=== PATIENT | male | born 1950 | race Caucasian/White ===

== ENCOUNTER 2016-08-25 07:05 | Day surgery (SDC) | payer MEDICARE, OTHER ==
[2016-08-25] VITALS (27 sets, daily range): BP systolic 102–141; BP diastolic 55–84; PULSE 50–70; RESP 10–22; TEMP 95.8–98; O2SAT 93–99; Ht 185.4 cm; Wt 105.1 kg
[~2016-08-25] VITALS: Ht 185.4 cm; Wt 105.1 kg
[~2016-08-25 07:05] MED LIST: ATOR10TA64 PO; HYDR25TA PO; LIDOCAINE 1% (10mg/ml) 2ml SDV INJ ONE; LOSA50TA52 PO; LR 1,000 ML IV SCH; SAW450CA4 PO; SILD20TA10 PO; TAMS-1 PO
--- OUTSIDE RECORDS SUMMARY | 2016-08-25 07:09 | XMS REPORT | Summary of Care ---
Author Author Ervin Castro M.D. Unknown Address [address] [place], [place] [id number] Phone Unavailable Care Team Providers Care Slip Cover Operator Name Role Phone Matthew Gonzalez, Jermain Unavailable Jonathan Lyons M.D. 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, N52.9) Status: Active UTI (urinary tract infection) (599.0, N39.0) Status: Active Incomplete bladder emptying (788.21, R33.9) Status: Active BPH with obstruction/lower urinary tract symptoms (600.01, N40.1) Status: Active Medications Name Dates Details Losartan Potassium 50 MG Oral Tablet Take one tablet by mouth daily Quantity: 90 Crater M.D., Ervin Aly * Start 28-May-2016 Active HydroCHLOROthiazide 25 MG Oral Tablet TAKE ONE TABLET BY MOUTH EVERY DAY DIRECTED * Quantity: 90 Refills: 3 Crater M.D., Ervin Aly * Start 16-Aug-2012 Active Atorvastatin Calcium 10 MG Oral Tablet take one tablet by mouth every day * Quantity: 90 Refills: 2 Crater M.D., Ervin Aly * Start 03-Aug-2013 Active Sildenafil Citrate 20 MG Oral Tablet TAKE 5 TABLETS BY MOUTH DAILY NEEDED * Quantity: 90 Refills: 0 Matthew M.D.Ervin * Start Active Saw [place] Oral Capsule * Refills: 0 * Start 25-Jun-2016 Active Tamsulosin HCl - 0.4 MG Oral Capsule TAKE 1 CAPSULE BY MOUTH AT BEDTIME * Quantity: 30 Refills: 0 Jonathan Fan M.D. * Start 25-Jun-2016 Active Allergies and Adverse Reactions Name Dates Details No Known Drug Allergies (Allergy) Status: Active Past Medical History Name Dates Details History of Dysuria (788.1, R30.0) Status: Resolved History of Elevated prostate specific antigen (PSA) (790.93, R97.20) Status: Resolved History of hepatitis (V12.09, Z86.19) Status: Resolved History of Hyperlipoproteinemia (272.4, E78.5) Status: Resolved History of Nephrolithiasis (V13.01) Status: Resolved Procedures Procedure Dates Details History of Knee Surgery History of Surgery Vas Deferens Vasectomy History of Complete Colonoscopy History of Complete Colonoscopy Completed: 11-Dec-2011 CBC w/ Auto Diff 7150 Ordered: 22-Jul-2016 Comprehensive Metabolic Panel 1212 Ordered: 22-Jul-2016 Immunization Name Dates Details Tdap (Adacel) Lot #: [id number] on: 05-Jan-2014 Pneumo (Pneumovax) Lot #: [id number] on: 22-May-2016 Family History Name Dates Details Family history of Cancer Comments: Family History Status: Active Family history of Nephrolithiasis Comments: Family History Status: Active Family history of Diabetes Mellitus (V18.0) Comments: Family History Status: Active Family history of Hypertension (V17.49) Comments: Family History Status: Active Family history of Acute Myocardial Infarction (V17.3) Comments: Family History Status: Active Family history of Colon Cancer (V16.0) Comments: Family History Status: Active Name Dates Details Family history of Acute Myocardial Infarction (V17.3) Status: Active Name Dates Details Family history of Acute Myocardial Infarction (V17.3) Status: Active Social History Name Dates Details - Status: Name Dates Details Smoker. current status unknown Former smoker Former smoker Vital Signs Date Test Result Details 22-Jul-2016 13:04 BP Systolic 130 mm[Hg] Status: Comments: Location: ; Position: BP Diastolic 70 mm[Hg] Status: Comments: Location: ; Position: Heart Rate 65 /min Status: Comments: Location: ; Weight 241 lb Status: Physical Findings 100 Status: Comments: O2 Saturation Body Mass Index Calculated 31.8 kg/m2 Status: Body Surface Area Calculated 2.33 m2 Status: 25-Jun-2016 15:12 BP Systolic 136 mm[Hg] Status: Comments: Location: ; Position: BP Diastolic 84 mm[Hg] Status: Comments: Location: ; Position: Heart Rate 66 /min Status: Comments: Location: ; Results Date Description Value Details 29-Jun-2016 09:38 URINE CULTURE [id number] Comments: Dave performed at: [facility] [employer] [facility], [address] [place] [address], [phone], Centrifugal Station Operator: Jonathan Camacho D.O., MPHQuest Collection Date/Time: [id number] Results Received Date/Time: [id number] Reported Date/Time: [id number] performed at: [facility], [address] [place] [address], [phone], Centrifugal Station Operator: Jonathan Camacho D.O., MPH[employer] Collection Date/Time: [id number] Results Received Date/Time: [id number] Reported Date/Time: [id number] CULTURE, URINE, ROUTINE SEE NOTE (Abnormal) Comments: CULTURE, URINE, ROUTINE MICRO NUMBER: [id number] TEST STATUS: FINAL SPECIMEN SOURCE : CLEAN CATCH SPECIMEN QUALITY: ADEQUATE RESULT: Greater than 100,000 CFU/mL of Aerococcus urinae Susceptibility testing not routinely performed on this isolate.[LA]----- Plan of Care Name Dates Details Planned Observations Planned Goals not documented Planned Encounters Appointment; Provider: Ervin Castro M.D. On 22-Jan-2017 13:30 Instructions Name Dates Details Instructions not documented Encounters Appointment; Ervin Castro M.D. Encounter Diagnosis: Problem not documented On 22-May-2016 13:15 Appointment; Honey Moon P.A. Encounter Diagnosis: Problem not documented On 21-Feb-2016 10:20 Appointment; Ervin Castro M.D. Encounter Diagnosis: Problem not documented On 13:00 Appointment; Ervin Castro M.D. Encounter Diagnosis: Problem not documented On 26-Aug-2015 10:15 Appointment; Bull Lawrence PShravan Encounter Diagnosis: Problem not documented On 21-Aug-2015 09:00 Appointment; Eric Perez M.D. Encounter Diagnosis: Problem not documented On 27-Jun-2015 08:50 Appointment; Ervin Castro M.D. Encounter Diagnosis: Problem not documented On 17-May-2015 13:30 Appointment; Ervin Castro M.D. Encounter Diagnosis: Problem not documented On 13:30 Appointment; Bull Lawrence P.T. Encounter Diagnosis: Problem not documented On 07-Aug-2014 10:00 Appointment; Ervin Castro M.D. Encounter Diagnosis: Problem not documented On 03-Aug-2014 13:45
--- OUTSIDE RECORDS SUMMARY | 2016-08-25 07:10 | XMS REPORT | Summary of Care ---
Author Author Ervin Castro M.D. Organization Unknown Address [address] [place], [place] [id number] Phone Unavailable Care Team Providers Care C4 Planner Name Role Phone Matthew Gonzalez, Jermain Unavailable Unavailable Ervin Castro PP Unavailable Unavailable Unavailable Functional Status Functional Status Health Issues* Name Dates Details Functional status health issues are not documented Status: Cognitive Status Health Issues* Name Dates Details Cognitive status health issues are not documented Status: Problems Name Dates Details Dysuria (788.1, R30.0) Status: Active Angina pectoris (413.9, I20.9) Status: Active Atypical chest pain (786.59, R07.89) Status: Active Elevated prostate specific antigen (PSA) (790.93, R97.2) Status: Active Hematuria (599.70, R31.9) Status: Active Hyperlipidemia (272.4, E78.5) Status: Active Acute upper respiratory infection (465.9, J06.9) Status: Active Hypertension (401.9, I10) Status: Active Medications Name Dates Details Losartan Potassium 100 MG Oral Tablet take one tablet by mouth every day Quantity: 90 Ervin Castro M.D.* Started 22-May-2011 ActiveHydrochlorothiazide 25 MG Oral Tablet TAKE ONE TABLET BY MOUTH EVERY DAY DIRECTED * Quantity: 30 Refills: 4 Ervin Castro M.D.* Started 16-Aug-2012 ActiveAtorvastatin Calcium 10 MG Oral Tablet take one tablet by mouth every day * Quantity: 90 Refills: 2 Ervin Castro M.D.* Started 03-Aug-2013 ActiveProventil HFA 108 (90 Base) MCG/ACT Inhalation Aerosol Solution INHALE 1 TO 2 PUFFS EVERY 6 HOURS NEEDED. * Quantity: 1 Refills: 1 Ervin Castro M.D.* Started 21-May-2014 Active6.7 GM Inhaler Allergies and Adverse Reactions Name Dates Details No Known Drug Allergies Status: Active Past Medical History Name Dates Details History of hepatitis (V12.09, Z86.19) Status: Resolved History of Hyperlipoproteinemia (272.4, E78.5) Status: Resolved History of Nephrolithiasis (V13.01) Status: Resolved Procedures Procedure Dates Details History of Knee Surgery History of Surgery Vas Deferens Vasectomy History of Complete Colonoscopy History of Complete Colonoscopy Completed:11-Dec-2011 THYROID STIM. HORMONE 3602 Ordered:06-Jul-2014 Testosterone,Free and Total [id number] Ordered:06-Jul-2014 Immunization Name Dates Details Tdap (Adacel) Lot #: [id number] Administered on:05-Jan-2014 Family History Unknown Family Member* Name Dates Details Family history of Cancer [...] Cancer (V16.0) Comments: Family History Status: Active Grandfather* Name Dates Details Family history of Acute Myocardial Infarction (V17.3) Status: Active Father* Name Dates Details Family history of Acute Myocardial Infarction (V17.3) Status: Active Social History Name Dates Details Smoking Status* Smoker. current status unknown * Former smoker Vital Signs Date Test Result Details 06-Jul-2014 10:23 BP Systolic 120 mm[Hg] Status: BP Diastolic 78 mm[Hg] Status: Heart Rate 75 /min Status: Weight 241.25 lb Status: O2 SAT 98 % Status: Body Mass Index Calculated 31.83 kg/m2 Status: Body Surface Area Calculated 2.33 m2 Status: Results Date Description Value Details 03-Jul-2014 09:31 CBC w/ Auto Diff 7150 Comments: Fastin hours WBC 7.6 K/uL (Better) Range: 4.5-11.0 RBC 5.19 mil/uL (Better) Range: 4.20-5.40 HGB 15.4 g/dL (Better) Range: 14.0-18.0 HCT 45.1 % (Better) Range: 42.0-53.0 MCV 86.9 fL (Better) Range: 80.0-99.0 MCH 29.6 pg (Better) Range: 27.3-32.5 MCHC 34.1 % (Better) Range: 32.0-36.0 RDW 13.7 % (Better) Range: 11.6-14.8 PLATELETS 221 K/uL (Better) Range: 150-400 MPV 8.5 fL (Better) Range: 6.0-11.0 %NEUTRO 71.1 % (Better) Range: 37.0-80.0 %LYMPHS 18.0 % (Better) Range: 13.0-50.0 %MONO 6.8 % (Better) Range: 0.0-12.0 %EOS 2.3 % (Better) Range: 0.0-7.0 %BASO 0.5 % (Better) Range: 0.0-2.5 %JAMIL 1.2 % (Better) Range: 0.0-5.0 NEUTRO 5.4 K/uL (Better) Range: 2.0-6.9 LYMPHS 1.4 K/uL (Better) Range: 0.6-3.4 MONOS 0.5 K/uL (Better) Range: 0.0-0.9 EOS 0.2 K/uL (Better) Range: 0.0-0.7 BASO 0.0 K/uL (Better) Range: 0.0-0.2 10:00 Comprehensive Metabolic Panel 1212 Comments: Fastin hours SODIUM 139 mmol/L (Better) Range: 133-144 POTASSIUM 3.7 mmol/L (Better) Range: 3.5-5.1 CHLORIDE 103 mmol/L (Better) Range: 98-110 CARBON DIOXIDE 27.5 mmol/L (Better) Range: 23.0-33.0 ANION GAP 9 mmol/L (Better) Range: 6-16 BUN 20 mg/dL (Above high threshold) Range: 7-18 CREATININE, SERUM 1.16 mg/dL (Above high threshold) Range: 0.43-1.13 BUN:CREATININE RATIO 17 (Better) EST GFR, >60 ml/min (Better) Range: >60 EST GFR, NON-AFR TUVALUAN >60 ml/min (Better) Range: >60 Comments: EST GFR is reported in ml/min per 1.73 m2 of body surface area. For -Mauritanian, please multiple result by 1.2.----- GLUCOSE 109 mg/dL (Above high threshold) Range: 70-100 ALK PHOSPHATASE 65 U/L (Better) Range: 46-116 Comments: Please Note: New Reference Range effective 2013.----- TOTAL BILIRUBIN 0.50 mg/dL (Better) Range: 0.20-1.00 AST 27 U/L (Better) Range: 8-35 ALT 46 U/L (Better) Range: 12-78 ALBUMIN 4.0 g/dL (Better) Range: 3.4-5.0 TOTAL PROTEIN 7.4 g/dL (Better) Range: 6.4-8.2 A/G RATIO 1.2 units (Better) Range: 1.0-1.8 CALCIUM 8.7 mg/dL (Better) Range: 8.5-10.1 10:00 LIPID PROFILE 1184 Comments: Fastin hours CHOLESTEROL 161 mg/dL (Better) Range: <200 TRIGLYCERIDES 117 mg/dL (Better) Range: 30-200 HDL Cholesterol 41 mg/dL (Better) Range: >39 NON HDL CHOLESTEROL 120 (Better) CARDIAC RSK FACTOR 3.9 units (Below low threshold) Range: 4.4-5.0 LDL - CALCULATED 97 mg/dL (Better) Range: 0-130 10:06 PSA ( PROSTATE SPECIFIC ANTIGEN) 3100 Comments: Fastin hours PROSTATE SPECIFIC ANTIGEN 1.020 ng/mL (Better) Range: 0.000-4.000 Plan of Care Planned Observations* Name Dates Details Planned Goals not documented Goal Planned Encounters* Appointment; Provider: Ervin Castro On 03-Aug-2014 13:45 * Appointment; Provider: Jj Shaw On 11-Dec-2011 08:00 Instructions * Instructions not documented Encounters Appointment; Ervin Castro Encounter Diagnosis: Problem not documented On 06-Jul-2014 10:30 Appointment; Ervin Castro Encounter Diagnosis: Problem not documented On 21-May-2014 13:00 Appointment; Ervin Castro Encounter Diagnosis: Problem not documented On 05-Jan-2014 10:15 Appointment; Bull Lawrence Encounter Diagnosis: Problem not documented On 11:00 Appointment; Ervin Castro Encounter Diagnosis: Problem not documented On 20-Jun-2013 15:15 Appointment; Ervin Castro Encounter Diagnosis: Problem not documented On 07-Dec-2012 16:00 Appointment; Yenni Guerrero Encounter Diagnosis: Problem not documented On 02-Sep-2012 16:00 Appointment; Ervin Castro Encounter Diagnosis: Problem not documented On 23-Aug-2012 11:00 Appointment; Yenni Guerrero Encounter Diagnosis: Problem not documented On 18-Aug-2012 15:00 Appointment; Ervin Castro Encounter Diagnosis: Problem not documented On 16-Aug-2012 09:00
--- OUTSIDE RECORDS SUMMARY | 2016-08-25 07:10 | XMS REPORT | Summary of Care ---
Author Author Ervin Castro M.D. Unknown Address [address] [place], [place] [id number] Phone Unavailable Care Team Providers Care Movie Extra Name Role Phone Matthew Gonzalez, Jermain Unavailable [...] 0 Matthew M.D.Ervin * Start Active Saw [place] Oral Capsule * Refills: 0 * Start [...] Name Dates Details Tdap (Adacel) Lot #: [id number] on: 05-Jan-2014 Pneumo (Pneumovax) Lot #: [id number] on: 22-May-2016 Family History Name Dates Details [...] Rate 66 /min Status: Comments: Location: ; 23-Jun-2016 13:42 BP Systolic 136 mm[Hg] Status: Comments: Location: ; Position: BP Diastolic 78 mm[Hg] Status: Comments: Location: ; Position: Heart Rate 67 /min Status: Comments: Location: ; Weight 234.6 lb Status: Physical Findings 96 Status: Comments: O2 Saturation Body Mass Index Calculated 30.95 kg/m2 Status: Body Surface Area Calculated 2.3 m2 Status: Results Date Description Value Details 29-Jun-2016 09:38 URINE CULTURE [id number] Comments: SmartThings performed at: [facility] [employer], [address] [place] [address], [phone], Supervisor Prep: Jonathan Camacho D.O., MPHQuest Collection Date/Time: [id number] Results Received Date/Time: [id number] Reported Date/Time: [id number] performed at: [facility] [employer], [address] [place] [address], [phone], Supervisor Prep: Jonathan Camacho D.O., MPHQuest Collection Date/Time: [id number] Results Received Date/Time: [id number] Reported Date/Time: CULTURE, URINE, ROUTINE SEE NOTE (Abnormal) Comments: CULTURE, URINE, ROUTINE MICRO NUMBER: [id number] TEST STATUS: FINAL SPECIMEN SOURCE : CLEAN CATCH SPECIMEN QUALITY: ADEQUATE RESULT: Greater than 100,000 CFU/mL of Aerococcus urinae Susceptibility testing not routinely performed on this isolate.[KS]----- Plan of Care Name Dates Details Planned Observations CBC w/ Auto Diff 7150 On 22-Jan-2017 Intent Comprehensive Metabolic Panel 1212 On 22-Jan-2017 Intent Planned Goals not documented Planned Encounters Appointment; Provider: Ervin Castro M.D. On 22-Jan-2017 13:30 Appointment; Provider: Jonathan Fan M.D. On 23-Jul-2016 16:15 Instructions Name Dates Details Instructions not documented Encounters Appointment; Jonathan Fan M.D. Encounter Diagnosis: Problem not documented On 13-Jul-2016 16:00 Appointment; Jonathan Fan M.D. Encounter Diagnosis: Problem not documented On 25-Jun-2016 15:15 Appointment; Ervin Castro M.D. Encounter Diagnosis: Problem not documented On 23-Jun-2016 13:45 Appointment; Ervin Castro M.D. Encounter Diagnosis: Problem not documented On 22-May-2016 13:15 Appointment; Honey Moon P.A. Encounter Diagnosis: Problem not documented On 21-Feb-2016 10:20 Appointment; Ervin Castro M.D. Encounter Diagnosis: Problem not documented On 13:00 Appointment; Ervin Castro M.D. Encounter Diagnosis: Problem not documented On 26-Aug-2015 10:15 Appointment; Bull Lawrence P.T. Encounter Diagnosis: Problem not documented On 21-Aug-2015 [...]
--- OUTSIDE RECORDS SUMMARY | 2016-08-25 07:10 | XMS REPORT | Summary of Care ---
Author Author Ervin Castro M.D. Unknown Address [address], [place] [id number] Phone Unavailable Care Team Providers Care Ticket Seller Name Role Phone Matthew Gonzalez, A Unavailable Unavailable Honey Willis Unavailable Unavailable Ervin Castro Unavailable Unavailable Unavailable Functional Status Name Dates Details Functional status health issues are not documented Status: Name Dates Details Cognitive status health issues are not documented Status: Problems Name Dates Details Angina pectoris (413.9, I20.9) Status: Active Hematuria (599.70, R31.9) Status: Active Elevated prostate specific antigen (PSA) (790.93, R97.20) Status: Active Hyperlipidemia (272.4, E78.5) Status: Active Hypertension (401.9, I10) Status: Active Atypical chest pain (786.59, R07.89) Status: Active 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, N52.9) Status: Active Dysuria (788.1, R30.0) Status: Active Medications Name Dates Details Losartan Potassium 50 MG Oral Tablet Take one tablet by mouth daily Quantity: 90 Matthew Silverman.Julito.Ervin * Start 28-May-2016 Active HydroCHLOROthiazide 25 MG Oral Tablet TAKE ONE TABLET BY MOUTH EVERY DAY DIRECTED * Quantity: 90 Refills: 3 Matthew Silverman.Julito., Ervin Aly * Start 16-Aug-2012 Active Atorvastatin Calcium 10 MG Oral Tablet take one tablet by mouth every day * Quantity: 90 Refills: 2 Matthew M.D., Ervin Aly * Start 03-Aug-2013 Active Sulfamethoxazole-Trimethoprim 800-160 MG Oral Tablet TAKE 1 TABLET PO EVERY 12 HOURS X 10 DAYS * Quantity: 20 Refills: 0 Red Meredith.Honey Monzon * Start 21-Feb-2016 Active LevoFLOXacin 250 MG Oral Tablet 1 daily x 10 days * Quantity: 10 Refills: 0 Ervin Castro M.D. Start 17-Mar-2016 Active Sildenafil Citrate 20 MG Oral Tablet TAKE 5 TABLETS BY MOUTH DAILY NEEDED * Quantity: 90 Refills: 0 Matthew Silverman.Ollie, Ervin A * Start Active Allergies and Adverse Reactions Name Dates [...] Colonoscopy History of Complete Colonoscopy Completed: 11-Dec-2011 Urinalysis, Reflex to Microscopic or Culture PRN [id number] Ordered: 22-May-2016 Immunization Name Dates Details Tdap (Adacel) Lot #: [id number] on: 05-Jan-2014 Pneumo (Pneumovax) Lot #: [id number] on: 22-May-2016 Family History Name Dates Details [...] smoker Vital Signs Date Test Result Details 22-May-2016 13:04 BP Systolic 134 mm[Hg] Status: Comments: Location: ; Position: BP Diastolic 88 mm[Hg] Status: Comments: Location: ; Position: Heart Rate 102 /min Status: Comments: Location: ; Weight 238 lb Status: Physical Findings 98 Status: Comments: O2 Saturation Body Mass Index Calculated 31.4 kg/m2 Status: Body Surface Area Calculated 2.32 m2 Status: Results Date Description Value Details 22-May-2016 13:23 BASIC METABOLIC PROFILE 1210 SODIUM 135 mmol/L Range: 133-144 POTASSIUM 3.5 mmol/L Range: 3.5-5.1 CHLORIDE 98 mmol/L Range: 98-110 CARBON DIOXIDE 29.5 mmol/L Range: 23.0-33.0 ANION GAP 8 mmol/L Range: 6-16 BUN 15 mg/dL Range: 7-18 CREATININE, SERUM 1.23 mg/dL Range: 0.70-1.30 EST GFR, >60 ml/min Range: >60 EST GFR, NON-AFR ANGOLAN 59 ml/min (Below low threshold) Range: >60 Comments: EST GFR is reported in ml/min per 1.73 m2 of body surface area. ----- BUN:CREATININE RATIO 12 GLUCOSE 176 mg/dL (Above high threshold) Range: 70-100 CALCIUM 9.6 mg/dL Range: 8.5-10.1 Plan of Care Name Dates Details Planned Observations Urinalysis, Reflex to Microscopic or Culture PRN [id number] On 25-May-2016 Intent Planned Goals not documented Planned Encounters Appointment; Provider: Ervin Castro M.D. On 23-Jun-2016 13:45 Interventions Provided Medication Changes* LevoFLOXacin 250 MG Oral Tablet - Renew Instructions Name Dates Details Instructions not documented Encounters Appointment; Honey Moon P.A. Encounter Diagnosis: Problem [...] not documented On 07-Aug-2014 10:00 Appointment; Ervin Csatro M.D. Encounter Diagnosis: Problem not documented On 03-Aug-2014 13:45 Appointment; Ervin Castro M.D. Encounter Diagnosis: Problem not documented On 06-Jul-2014 10:30
--- OUTSIDE RECORDS SUMMARY | 2016-08-25 07:10 | XMS REPORT | Summary of Care ---
Author Author Jonathan Fan M.D. Organization Unknown Address [address] [place] [address] [place] [address] Phone Unavailable Care Team Providers Care Air Conditioning Installer Supervisor Name Role Phone Jermain Castro M.D. Unavailable Jonathan Fan M.D. Unavailable Unavailable Ervin Castro Unavailable Unavailable [...] Status: Active Dysuria (788.1, R30.0) Status: Active UTI (urinary tract infection) (599.0, N39.0) Status: Active Incomplete bladder emptying (788.21, R33.9) Status: Active BPH with obstruction/lower urinary tract symptoms (600.01, N40.1) Status: Active Medications Name Dates Details Losartan Potassium 50 MG Oral Tablet Take one tablet by mouth daily Quantity: 90 Crater M.D., Ervin A * Start 28-May-2016 Active HydroCHLOROthiazide 25 MG Oral Tablet TAKE ONE TABLET BY MOUTH EVERY DAY DIRECTED * Quantity: 90 Refills: 3 Crater M.D., Ervin Aly * Start 16-Aug-2012 Active Atorvastatin Calcium 10 MG Oral Tablet take one tablet by mouth every day * Quantity: 90 Refills: 2 Crater M.D., Ervin A * Start 03-Aug-2013 Active Sildenafil Citrate 20 MG Oral Tablet TAKE 5 TABLETS BY MOUTH DAILY NEEDED * Quantity: 90 Refills: 0 Crater M.D., Ervin Aly * Start Active Saw [place] Oral Capsule * Refills: 0 * Start 25-Jun-2016 Active Amoxicillin-Pot Clavulanate 875-125 MG Oral Tablet TAKE 1 TABLET EVERY 12 HOURS WITH MEALS X 21 days * Quantity: 42 Refills: 0 Cho M.D. Jonathan * Start 25-Jun-2016 End 16-Jul-2016 Active Tamsulosin HCl - 0.4 MG Oral Capsule TAKE 1 CAPSULE BY MOUTH AT BEDTIME * Quantity: 30 Refills: 0 Cho M.D. Jonathan * Start 25-Jun-2016 Active Allergies and Adverse [...] Colonoscopy History of Complete Colonoscopy Completed: 11-Dec-2011 Procedures not documented Immunization Name Dates Details Tdap (Adacel) Lot #: [id number] on: 05-Jan-2014 Pneumo (Pneumovax) Lot #: [id number] on: 22-May-2016 Family History Name Dates Details [...] smoker Vital Signs Date Test Result Details 25-Jun-2016 15:12 BP Systolic 136 mm[Hg] Status: [...] m2 Status: Results Date Description Value Details 06-Jun-2016 10:51 Urinalysis, Reflex to Microscopic or Culture PRN [id number] Comments: 10 day f/u after completion of Levaquin 250 mg qd x 10 days started on 05/22/16 pH 7.0 Range: 5.0-7.5 SP GRAVITY 1.015 Range: 1.010-1.030 APPEARANCE CLOUDY (Abnormal) Range: Clear COLOR YELLOW Range: Straw-Yellow PROTEIN NEGATIVE mg/dL Range: Negative-Trace GLUCOSE NEGATIVE mg/dL Range: Negative KETONE NEGATIVE mg/dL Range: Negative BILIRUB NEGATIVE Range: Negative BLOOD NEGATIVE Range: Negative UROBIL 0.2 EU/dL Range: 0.2-1.0 NITRITE NEGATIVE Range: Negative LEUK SMALL (Abnormal) Range: Negative 10:51 Urine Microscopic UMIC WBC 6-10 /HPF (Abnormal) Range: 0-5 Comments: Specimen referred to Reference Lab for Culture----- BACTERIA 3+ /HPF (Abnormal) Range: Negative-Trace Comments: Specimen referred to Reference Lab for Culture----- EPITH 0-2 /HPF Range: 0-10 08-Jun-2016 08:21 URINE CULTURE [id number] Comments: appweevr performed at: [facility], [address] [place] [address], [phone], Heater Operator Helper: Jonathan Camacho D.O., MPHQuest Collection Date/Time: [id number] Results Received Date/Time: [id number] Reported Date/Time: [id number] performed at: [facility], [place], [address], Heater Operator Helper: Jonathan Camacho D.O., M[facility] Collection Date/Time: [id number] Results Received Date/Time: [id number] Reported Date/Time: CULTURE, URINE, ROUTINE SEE NOTE (Abnormal) Comments: CULTURE, URINE, ROUTINE MICRO NUMBER: [id number] TEST STATUS: FINAL SPECIMEN SOURCE : URINE SPECIMEN QUALITY: ADEQUATE RESULT: 10,000-50,000 CFU/mL of Streptococcus viridans group May represent colonizers from external and internal genitalia. No further testing ( including susceptibility) will be performed.[KS]----- 29-Jun-2016 09:38 URINE CULTURE [id number] Comments: appweevr performed at: [facility], [address] [place] [address], [phone], Heater Operator Helper: Jonathan Camacho D.O., M[facility] Collection Date/Time: [id number] Results Received Date/Time: [id number] Reported Date/Time: [id number] performed at: [facility], [address] [place] [address], [phone], Heater Operator Helper: Jonathan Camacho D.O., M[facility] Collection Date/Time: [id number] Results Received Date/Time: [id number] Reported Date/Time: [id number] CULTURE, URINE, ROUTINE SEE NOTE (Abnormal) Comments: CULTURE, URINE, ROUTINE MICRO NUMBER: [id number] TEST STATUS: FINAL SPECIMEN SOURCE : CLEAN CATCH SPECIMEN QUALITY: ADEQUATE RESULT: Greater than 100,000 CFU/mL of Aerococcus urinae Susceptibility testing not routinely performed on this isolate.[KS]----- Plan of Care Name Dates Details Planned Observations Planned Goals not documented Planned Encounters Appointment; Provider: Ervin Castro M.D. On 22-Jul-2016 13:15 Appointment; Provider: Jonathan Fan M.D. On 13-Jul-2016 16:00 Instructions Name Dates Details Instructions not documented Encounters Appointment; Jonathan Fan M.D. Encounter Diagnosis: Problem not documented On 25-Jun-2016 15:15 Appointment; Ervin Castro M.D. Encounter Diagnosis: Problem not documented On 23-Jun-2016 13:45 Appointment; Ervin Castro M.D. Encounter Diagnosis: Problem not documented On 22-May-2016 13:15 Appointment; Honey Moon P.A. Encounter Diagnosis: Problem not documented On 21-Feb-2016 10:20 Appointment; Erivn Castro M.D. Encounter Diagnosis: Problem not documented [...]
--- OUTSIDE RECORDS SUMMARY | 2016-08-25 07:10 | XMS REPORT | Summary of Care ---
Author Author Ervin Castro M.D. Organization Unknown Address [address] [place], [place] [id number] Phone Unavailable Care Team Providers Care Health Occupations Instructor Name Role Phone Matthew Gonzalez, Jermain Unavailable [...] Status: Active Hypertension (401.9, I10) Status: Active Acute upper respiratory infection (465.9, J06.9) Status: Active Medications Name Dates Details Losartan Potassium 100 MG Oral Tablet take one tablet by mouth every day Quantity: 90 Ervin Castro M.D.* Started 22-May-2011 ActiveHydrochlorothiazide 25 MG Oral Tablet TAKE ONE TABLET BY MOUTH EVERY DAY DIRECTED * Quantity: 30 Refills: 5 Ervin Castro M.D.* Started 16-Aug-2012 ActiveAtorvastatin Calcium 10 MG Oral Tablet take one tablet by mouth every day * Quantity: 90 Refills: 2 Ervin Castro M.D.* Started 03-Aug-2013 ActiveAzithromycin 250 MG Oral Tablet TAKE 2 TABLETS ON DAY 1 THEN TAKE 1 TABLET A DAY FOR 4 DAYS. * Quantity: 1 Refills: 0 Ervin Castro M.D.* Started 21-May-2014 Active6 Tablet Disp Pack MethylPREDNISolone (Jimmy) 4 MG Oral Tablet TAKE DIRECTED. * Quantity: 1 Refills: 0 Ervin Castro M.D.* Started 21-May-2014 Tousts94 Tablet Disp Pack Proventil HFA 108 (90 Base) MCG/ACT Inhalation Aerosol [...] Complete Colonoscopy History of Complete Colonoscopy Completed:11-Dec-2011 Procedures not documented Immunization Name Dates Details Tdap (Adacel) Lot #: [id number] Administered on:05-Jan-2014 Family History Unknown Family Member* [...] smoker Vital Signs Date Test Result Details 21-May-2014 13:17 BP Systolic 124 mm[Hg] Status: BP Diastolic 74 mm[Hg] Status: Heart Rate 74 /min Status: O2 SAT 97 % Status: Results Date Description Value Details Results not documented Plan of Care Planned Observations* Name Dates Details Planned Goals not documented Goal Planned Encounters* Appointment; Provider: Ervin Castro On 06-Jul-2014 10:30 * Appointment; Provider: Jj Shaw On 11-Dec-2011 [...] Diagnosis: Problem not documented On 16-Aug-2012 09:00 Appointment; Ervin Castro Encounter Diagnosis: Problem not documented On 15-Jun-2012 16:00
--- OUTSIDE RECORDS SUMMARY | 2016-08-25 07:10 | XMS REPORT | Summary of Care ---
Author Author Ervin Castro M.D. Organization Unknown Address [address] [place], [place] [id number] Phone Unavailable Care Team Providers Care Project Management Name Role Phone Matthew Gonzalez, Jermain Unavailable [...] Refills: 0 Ervin Castro M.D.* Started 21-May-2014 Aheoxf18 Tablet Disp Pack Proventil HFA 108 (90 [...] Name Dates Details Tdap (Adacel) Lot #: [id number] Administered on:05-Jan-2014 Family History Unknown Family Member* [...]
--- OUTSIDE RECORDS SUMMARY | 2016-08-25 07:10 | XMS REPORT | Summary of Care ---
Author Author Ervin Castro M.D. Organization Unknown Address [address] [place], [place] [phone] Phone Unavailable Care Team Providers Care Sign Installer Name Role Phone Matthew Gonzalez, Jermain Unavailable [...] Status: Active Hematuria (599.70, R31.9) Status: Active Acute upper respiratory infection (465.9, J06.9) Status: Active Hyperlipidemia (272.4, E78.5) Status: Active Hypertension (401.9, I10) Status: Active Medications Name Dates Details Losartan Potassium 50 MG Oral Tablet TAKE ONE TABLET BY MOUTH DAILY Quantity: 90 Ervin Castro M.D.* Started 22-May-2011 [...] Name Dates Details Tdap (Adacel) Lot #: [id number] Administered on:05-Jan-2014 Family History Unknown Family Member* [...] smoker Vital Signs Date Test Result Details 03-Aug-2014 13:43 BP Systolic 124 mm[Hg] Status: BP Diastolic 80 mm[Hg] Status: Heart Rate 61 /min Status: Weight 241.5 lb Status: O2 SAT 97 % Status: Body Mass Index Calculated 31.86 kg/m2 Status: Body Surface Area Calculated 2.33 m2 Status: 06-Jul-2014 10:23 BP Systolic 120 mm[Hg] Status: BP Diastolic 78 mm[Hg] Status: Heart Rate 75 /min Status: Weight 241.25 lb Status: O2 SAT 98 % Status: Body Mass Index Calculated 31.83 kg/m2 Status: Body Surface Area Calculated 2.33 m2 Status: Results Date Description Value Details 09-Jul-2014 09:50 THYROID STIM. HORMONE 3602 THYROID STIM. HORMONE 3.379 uIU/mL (Better) Range: 0.550-4.780 Comments: \[id number]\No established reference ranges for infants and children < 2 years of ageNo established reference ranges for infants and children <2 years of age----- 10-Jul-2014 12:21 Testosterone,Free and Total [id number] Comments: TESTING PERFORMED AT: [DA] [facility] [place], [address], [place], [address], PHONE: [phone], ROOF PROMENADE TILE SETTER: HARMONY SY MDTESTING PERFORMED AT: [BN] [facility] [place], [address], [place], [address], PHONE: [phone], ROOF PROMENADE TILE SETTER: JULIO C DOWNING MD TESTOSTERONE, SERUM 435 NG/DL (Better) Range: 348-1197 COMMENT: COMMENT (Better) Comments: ADULT MALE REFERENCE INTERVAL IS BASED ON A POPULATION OFLEAN MALES UP TO 40 YEARS OLD.----- FREE TESTOSTERONE(DIRECT) 3.7 PG/ML (Below low threshold) Range: 6.6-18.1 Plan of Care Planned Observations* Name Dates Details Planned Goals not documented Goal Planned Encounters* Appointment; Provider: Ervin Castro On 13:30 * Appointment; Provider: Bull Lawrence On 07-Aug-2014 10:00 * Appointment; Provider: Jj Shaw On 11-Dec-2011 08:00 Instructions * Instructions not documented Encounters Appointment; Ervin Castro Encounter Diagnosis: Problem not documented On 03-Aug-2014 13:45 Appointment; Ervin Castro Encounter Diagnosis: Problem not [...]
--- OUTSIDE RECORDS SUMMARY | 2016-08-25 07:10 | XMS REPORT | Summary of Care ---
Author Author Eric Perez M.D. Organization Unknown Address [address] [place], [place] [phone] Phone Unavailable Care Team Providers Care Tube Bender Hand Name Role Phone Chris Gonzalez, L Unavailable Unavailable Matthew Gonzalez, Jermain Unavailable Unavailable Ervin Castro [...] Atypical chest pain (786.59, R07.89) Status: Active Dysuria (788.1, R30.0) Status: Active Elevated prostate specific antigen (PSA) (790.93, R97.2) Status: Active UTI (lower urinary tract infection) (599.0, N39.0) Status: Active Medications Name Dates Details Losartan Potassium 50 MG Oral Tablet TAKE ONE TABLET BY MOUTH DAILY Quantity: 90 Ervin Castro M.D.* Started 22-May-2011 ActiveHydrochlorothiazide 25 MG Oral Tablet TAKE ONE TABLET BY MOUTH EVERY DAY DIRECTED * Quantity: 30 Refills: 2 Ervin Castro M.D.* Started 16-Aug-2012 ActiveAtorvastatin Calcium 10 MG Oral Tablet take one tablet by mouth every day * Quantity: 90 Refills: 3 Ervin Castro M.D.* Started 03-Aug-2013 ActiveCiprofloxacin HCl - 500 MG Oral Tablet TAKE 1 TABLET TWICE DAILY. * Quantity: 14 Refills: 0 Eric Perez M.D.* Started 27-Jun-2015 Active Allergies and Adverse Reactions Name Dates Details No Known Drug Allergies Status: Active Past Medical History Name Dates Details History of hepatitis (V12.09, Z86.19) Status: Resolved History of Hyperlipoproteinemia (272.4, E78.5) Status: Resolved History of Nephrolithiasis (V13.01) Status: Resolved Procedures Procedure Dates Details History of Knee Surgery History of Surgery Vas Deferens Vasectomy History of Complete Colonoscopy History of Complete Colonoscopy Completed:11-Dec-2011 Comprehensive Metabolic Panel 1212 Ordered:17-May-2015 Immunization Name Dates Details Tdap (Adacel) Lot #: [id number] Administered on:05-Jan-2014 Family History Unknown Family Member* [...] smoker Vital Signs Date Test Result Details 27-Jun-2015 08:56 BP Systolic 147 mm[Hg] Status: BP Diastolic 83 mm[Hg] Status: Heart Rate 76 /min Status: O2 SAT 98 % Status: Results Date Description Value Details 27-Jun-2015 09:14 Urinalysis, Reflex to Microscopic or Culture PRN [id number] pH 6.0 (Better) Range: 5.0-7.5 SP GRAVITY 1.020 (Better) Range: 1.010-1.030 APPEARANCE CLOUDY (Abnormal) Range: Clear COLOR YELLOW (Better) Range: Straw-Yellow PROTEIN 30 mg/dL (Abnormal) Range: Negative-Trace GLUCOSE NEGATIVE mg/dL (Better) Range: Negative KETONE NEGATIVE mg/dL (Better) Range: Negative BILIRUB NEGATIVE (Better) Range: Negative BLOOD NEGATIVE (Better) Range: Negative UROBIL 0.2 EU/dL (Better) Range: 0.2-1.0 NITRITE NEGATIVE (Better) Range: Negative LEUK MODERATE (Abnormal) Range: Negative 09:14 Urine Microscopic UMIC WBC 21-50 /HPF (Abnormal) Range: 0-5 Comments: Specimen referred to Microbiology for Culture----- RBC 3-5 /HPF (Abnormal) Range: 0-2 BACTERIA 3+ /HPF (Abnormal) Range: Negative-Trace Comments: Specimen referred to Microbiology for Culture----- EPITH 3-5 /HPF (Better) Range: 0-10 Plan of Care Planned Observations* Name Dates Details Planned Goals not documented Goal Planned Encounters* Appointment; Provider: Ervin Castro On 13:00 * Appointment; Provider: Jj Shaw On 11-Dec-2011 08:00 Instructions * Instructions not documented Encounters Appointment; Eric Perez Encounter Diagnosis: Problem not documented On 27-Jun-2015 08:50 Appointment; Ervin Castro Encounter Diagnosis: Problem not documented On 17-May-2015 13:30 Appointment; Ervin Castro Encounter Diagnosis: Problem not documented On 13:30 Appointment; Bull Lawrence Encounter Diagnosis: Problem not documented On 07-Aug-2014 10:00 Appointment; Ervin Castro Encounter Diagnosis: Problem not documented On 03-Aug-2014 13:45 Appointment; Ervin Castro Encounter Diagnosis: Problem not documented On 06-Jul-2014 10:30 Appointment; Ervin Castro Encounter Diagnosis: Problem not documented On 21-May-2014 13:00 Appointment; Ervin Castro Encounter Diagnosis: Problem not documented On 05-Jan-2014 10:15 Appointment; Bull Lawrence Encounter Diagnosis: Problem not documented On 11:00
--- OUTSIDE RECORDS SUMMARY | 2016-08-25 07:10 | XMS REPORT | Summary of Care ---
Author Author Ervin Castro M.D. Organization Unknown Address [address] [place], [place] [id number] Phone Unavailable Care Team Providers Care Government Guard Name Role Phone Matthew Gonzalez, Jermain Unavailable [...] J06.9) Status: Active Medications Name Dates Details Hydrochlorothiazide 25 MG Oral Tablet TAKE ONE TABLET BY MOUTH EVERY DAY DIRECTED Quantity: 30 Ervin Castro M.D.* Started 16-Aug-2012 ActiveAtorvastatin Calcium [...] Refills: 0 Ervin Castro M.D.* Started 21-May-2014 Bjkgyz14 Tablet Disp Pack Proventil HFA 108 (90 Base) MCG/ACT Inhalation Aerosol Solution INHALE 1 TO 2 PUFFS EVERY 6 HOURS NEEDED. * Quantity: 1 Refills: 1 Ervin Castro M.D.* Started 21-May-2014 Active6.7 GM Inhaler Losartan Potassium 100 MG Oral Tablet take one tablet by mouth every day * Quantity: 90 Refills: 0 Ervin Castro M.D.* Started 22-May-2011 Active Allergies and Adverse Reactions Name Dates [...] Name Dates Details Tdap (Adacel) Lot #: [id number] Administered on:05-Jan-2014 Family History Unknown Family Member* [...]
--- OUTSIDE RECORDS SUMMARY | 2016-08-25 07:10 | XMS REPORT | Summary of Care ---
Author Author Ervin Castro M.D. Organization Unknown Address [address] [place], [place] [phone] Phone Unavailable Care Team Providers Care Senior Test Engineer Name Role Phone Chris Gonzalez, L Unavailable [...] urinary tract infection) (599.0, N39.0) Status: Active Cough (786.2, R05) Status: Active Medications Name Dates Details Losartan Potassium 50 MG Oral Tablet Take one tablet by mouth daily Quantity: 90 Ervin Castro M.D.* Started 22-May-2011 ActiveHydrochlorothiazide 25 MG Oral Tablet TAKE ONE TABLET BY MOUTH EVERY DAY DIRECTED * Quantity: 30 Refills: 0 Ervin Castro M.D.* Started 16-Aug-2012 ActiveAtorvastatin Calcium 10 MG Oral Tablet take one tablet by mouth every day * Quantity: 90 Refills: 3 Ervin Castro M.D.* Started 03-Aug-2013 ActiveCiprofloxacin HCl - 500 MG Oral Tablet TAKE 1 TABLET TWICE DAILY. * Quantity: 14 Refills: 0 Eric Perez M.D.* Started 27-Jun-2015 ActiveMedrol 4 MG Oral Tablet Therapy Pack TAKE MEDROL DOSEPAK DIRECTED PER PKG INSTRUCTION CARD. * Quantity: 1 Refills: 0 Ervin Castro M.D.* Started 26-Aug-2015 Ihfpdt94 Tablet Therapy Pack Box Allergies and Adverse Reactions Name Dates Details [...] Name Dates Details Tdap (Adacel) Lot #: [id number] Administered on:05-Jan-2014 Family History Unknown Family Member* [...] smoker Vital Signs Date Test Result Details 26-Aug-2015 10:18 BP Systolic 128 mm[Hg] Status: BP Diastolic 74 mm[Hg] Status: Heart Rate 58 /min Status: Weight 237 lb Status: O2 SAT 98 % Status: Body Mass Index Calculated 31.27 kg/m2 Status: Body Surface Area Calculated 2.31 m2 Status: Results Date Description Value Details Results not documented Plan of Care Planned Observations* Name Dates Details Planned Goals not documented Goal Planned Encounters* Appointment; Provider: Ervin Castro On 13:00 * Appointment; Provider: Jj Shaw On 11-Dec-2011 08:00 Instructions * Instructions not documented Encounters Appointment; Ervin Castro Encounter Diagnosis: Problem not documented On 26-Aug-2015 10:15 Appointment; Bull Lawrence Encounter Diagnosis: Problem not documented On 21-Aug-2015 09:00 Appointment; Eric Perez Encounter Diagnosis: Problem not [...]
--- OUTSIDE RECORDS SUMMARY | 2016-08-25 07:11 | XMS REPORT | Summary of Care ---
Author Ervin Sandoval M.D. Unknown Address [address] [place], [place] [phone] Phone Unavailable Care Team Providers Care Tool Crib Clerk Name Role Phone Matthew Gonzalez, A Unavailable Unavailable Honey Willis Unavailable Unavailable Ervin Castro Unavailable Unavailable Unavailable Unavailable Functional Status Name Dates [...] NEEDED * Quantity: 90 Refills: 0 Crater M.D.Ervin * Start Active Sulfamethoxazole-Trimethoprim 800-160 MG Oral Tablet TAKE 1 TABLET PO EVERY 12 HOURS X 10 DAYS * Quantity: 20 Refills: 0 Red Meredith.AHoney Emmanuel * Start 21-Feb-2016 Active LevoFLOXacin 250 MG Oral Tablet 1 TABLET DAILY X 3 DAYS * Quantity: 3 Refills: 0 Matthew Gonzalez Ervin Aly * Start 17-Mar-2016 Active Allergies and Adverse Reactions Name Dates [...] Name Dates Details Tdap (Adacel) Lot #: [id number] on: 05-Jan-2014 Pneumo (Pneumovax) Lot #: [id number] on: 22-May-2016 Family History Name Dates Details [...] smoker Vital Signs Date Test Result Details 23-Jun-2016 13:42 BP Systolic 136 mm[Hg] Status: [...] /HPF Range: 0-10 08-Jun-2016 08:21 URINE CULTURE [id number] Comments: [facility] performed at: [facility], [address] [place] [address], [address], Ios Developer: Jonathan Camacho D.O., [facility] Collection Date/Time: [id number] Results Received Date/Time: [id number] Reported Date/Time: [id number] performed at: [facility], [address] [place] [address], [address] [place] [address], Ios Developer: Jonathan Camacho D.O., MPHQuest Collection Date/Time: [id number] Results Received Date/Time: [id number] Reported Date/Time: [id number] CULTURE, URINE, ROUTINE SEE NOTE (Abnormal) Comments: CULTURE, URINE, ROUTINE MICRO NUMBER: [id number] TEST STATUS: FINAL SPECIMEN SOURCE : URINE SPECIMEN QUALITY: ADEQUATE RESULT: 10,000-50,000 CFU/mL of Streptococcus viridans group May represent colonizers from external and internal genitalia. No further testing ( including susceptibility) will be performed.[MO]----- Plan of Care Name Dates Details Planned Observations Planned Goals not documented Planned Encounters Appointment; Provider: Ervin Castro M.D. On 22-Jul-2016 13:15 Appointment; Provider: Jonathan Fan M.D. On 25-Jun-2016 15:15 Instructions Name Dates Details Instructions not documented [...]
--- OUTSIDE RECORDS SUMMARY | 2016-08-25 07:11 | XMS REPORT | Summary of Care ---
Author Author Yenni Guerrero M.D. Organization Unknown Address [address] [place], [place] [id number] Phone Unavailable Care Team Providers Care Apprentice Plumber Name Role Phone Yenni Guerrero M.D. Unavailable Unavailable Jermain Castro M.D. Unavailable Jonathan Lyons M.D. 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..] NEEDED * Quantity: 90 Refills: 0 Matthew M.Ervin Levin * Start Active Saw [place] Oral Capsule * Refills: 0 * Start 25-Jun-2016 Active Tamsulosin HCl - 0.4 MG Oral Capsule TAKE 1 CAPSULE BY MOUTH AT BEDTIME * Quantity: 30 Refills: 0 Cho M.D. Jonathan * Start 25-Jun-2016 Active Sulfamethoxazole-Trimethoprim 800-160 MG Oral Tablet 1 tablet bid x 30 days * Quantity: 60 Refills: 0 Cho M.D., Jonathan * Start 23-Jul-2016 Active Allergies and Adverse Reactions Name Dates Details No Known Drug Allergies (Allergy) Status: Active Past Medical History Name Dates Details History of Dysuria (788.1, R30.0) Status: Resolved History of Elevated prostate specific antigen (PSA) (790.93, R97.20) Status: Resolved History of hepatitis (V12.09, Z86.19) Status: Resolved History of Hyperlipoproteinemia (272.4, E78.5) Status: Resolved History of Nephrolithiasis (V13.01) Status: Resolved History of urinary tract infection (V13.02, Z87.440) Status: Resolved Procedures Procedure Dates Details History of Knee Surgery History of Surgery Vas Deferens Vasectomy History of Complete Colonoscopy History of Complete Colonoscopy Completed: 11-Dec-2011 CBC w/ Auto Diff 7150 Ordered: 22-Jul-2016 Comprehensive Metabolic Panel 1212 Ordered: 22-Jul-2016 Immunization Name Dates Details Tdap (Adacel) Lot #: [id number] on: 05-Jan-2014 Pneumo (Pneumovax) Lot #: [id number] on: 22-May-2016 Family History Name Dates Details [...] smoker Vital Signs Date Test Result Details 12-Aug-2016 14:33 BP Systolic 112 mm[Hg] Status: Comments: Location: ; Position: BP Diastolic 62 mm[Hg] Status: Comments: Location: ; Position: Heart Rate 67 /min Status: Comments: Location: ; Weight 236 lb Status: Physical Findings 97 Status: Comments: O2 Saturation Body Mass Index Calculated 31.14 kg/m2 Status: Body Surface Area Calculated 2.31 m2 Status: 22-Jul-2016 13:04 BP Systolic 130 mm[Hg] Status: Comments: Location: ; Position: BP Diastolic 70 mm[Hg] Status: Comments: Location: ; Position: Heart Rate 65 /min Status: Comments: Location: ; Weight 241 lb Status: Physical Findings 100 Status: Comments: O2 Saturation Body Mass Index Calculated 31.8 kg/m2 Status: Body Surface Area Calculated 2.33 m2 Status: Results Date Description Value Details 12-Aug-2016 14:25 ECG/ EKG (Specialists) Electro CardioGram Plan of Care Name Dates Details Planned Observations Planned Goals not documented Planned Encounters Appointment; Provider: Ervin Castro M.D. On 22-Jan-2017 13:30 Appointment; Provider: Jonathan Fan M.D. On 13-Aug-2016 15:15 Instructions Name Dates Details Instructions not documented Encounters Appointment; Jonathan Fan M.D. Encounter Diagnosis: Problem not documented On 23-Jul-2016 16:15 Appointment; Ervin Castro M.D. Encounter Diagnosis: Problem not documented On 22-Jul-2016 13:15 Appointment; Jonathan Fan M.D. Encounter Diagnosis: Problem [...]
--- OUTSIDE RECORDS SUMMARY | 2016-08-25 07:11 | XMS REPORT | Summary of Care ---
Author Author Jonathan Fan M.D. Organization Unknown Address [address] [place] [address] [place] [address] Phone Unavailable Care Team Providers Care Commissioned Security Officer Name Role Phone Jermain Castro M.D. Unavailable Unavailable Jonathan Fan M.D. 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, N52.9) Status: Active UTI (urinary tract infection) (599.0, N39.0) Status: Active Angina pectoris (413.9, I20.9) Status: Active Hypertension (401.9, I10) Status: Active [...] Quantity: 90 Refills: 0 Crater M.D., Ervin A * Start Active Saw [place] Oral Capsule * Refills: 0 * Start 25-Jun-2016 Active Amoxicillin-Pot Clavulanate 875-125 MG Oral Tablet TAKE 1 TABLET EVERY 12 HOURS WITH MEALS X 21 days * Quantity: 42 Refills: 0 Cho M.D.Jonathan * Start 25-Jun-2016 End 16-Jul-2016 Active Tamsulosin HCl - 0.4 MG Oral Capsule TAKE 1 CAPSULE BY MOUTH AT BEDTIME * Quantity: 30 Refills: 0 Cho M.D., Jonathan * Start 25-Jun-2016 Active Allergies and [...] Resolved Procedures Procedure Dates Details History of Surgery Vas Deferens Vasectomy History of Complete Colonoscopy Completed: 11-Dec-2011 History of Complete Colonoscopy History of Knee Surgery Procedures not documented Immunization Name Dates Details Tdap (Adacel) Lot #: [id number] on: 05-Jan-2014 Pneumo (Pneumovax) Lot #: [id number] on: 22-May-2016 Family History Name Dates Details Family history of Acute Myocardial Infarction (V17.3) Comments: Family History Status: Active Family history of Hypertension (V17.49) Comments: Family History Status: Active Family history of Nephrolithiasis Comments: Family History Status: Active Family history of Diabetes Mellitus (V18.0) Comments: Family History Status: Active Family history of Cancer Comments: Family History [...] Description Value Details 29-Jun-2016 09:38 URINE CULTURE [id number] Comments: Quest performed at: [facility], [facility], [address] [place] [address], [phone], Institutional Research Coordinator: Jonathan Camacho D.O., MPHQuest Collection Date/Time: [id number] Results Received Date/Time: [id number] Reported Date/Time: [id number] performed at: [facility], [facility], [address] [place] [address], [phone], Institutional Research Coordinator: Jonathan Camacho D.O., MPHQuest Collection Date/Time: [id number] Results Received Date/Time: [id number] Reported Date/Time: [id number] CULTURE, URINE, ROUTINE SEE NOTE (Abnormal) Comments: CULTURE, URINE, ROUTINE MICRO NUMBER: [id number] TEST STATUS: FINAL SPECIMEN SOURCE : CLEAN CATCH SPECIMEN QUALITY: ADEQUATE RESULT: Greater than 100,000 CFU/mL of Aerococcus urinae Susceptibility testing not routinely performed on this isolate.[[place]]----- Plan of Care Name Dates Details Planned Observations Planned Goals not documented Planned Encounters Appointment; Provider: Jonathan Fan M.D. On 23-Jul-2016 16:15 Appointment; Provider: Ervin Castro M.D. On 22-Jul-2016 13:15 Instructions Name Dates Details Instructions not documented [...]
--- OUTSIDE RECORDS SUMMARY | 2016-08-25 07:11 | XMS REPORT | Summary of Care ---
Author Ervin Sandoval M.D. Unknown Address [address] [place], [place] [id number] Phone Unavailable Care Team Providers Care Research Nurse Practitioner Name Role Phone Matthew Gonzalez, A Unavailable [...] one tablet by mouth daily Quantity: 90 Celineter M.Julito., Ervin Aly * Start 22-May-2011 Active HydroCHLOROthiazide 25 MG Oral Tablet TAKE [...] Refills: 0 Matthew M.D.Ervin * Start Active Sulfamethoxazole-Trimethoprim 800-160 MG Oral Tablet TAKE 1 TABLET PO EVERY 12 HOURS X 10 DAYS * Quantity: 20 Refills: 0 Red Meredith.AHoney Emmanuel * Start 21-Feb-2016 Active LevoFLOXacin 250 MG Oral Tablet 1 daily x 10 days * Quantity: 10 Refills: 0 Matthew Gonzalez, Ervin Aly * Start 17-Mar-2016 Active Allergies [...] Name Dates Details Tdap (Adacel) Lot #: [id number] on: 05-Jan-2014 Pneumo (Pneumovax) Lot #: [id number] on: 22-May-2016 Family History Name Dates Details [...] >60 ml/min Range: >60 EST GFR, NON-AFR KYRGYZ 59 ml/min (Below low threshold) Range: >60 [...] LevoFLOXacin 250 MG Oral Tablet - Renew Labs/Procedures/Imaging* BASIC METABOLIC PROFILE 1210; Done: May 22 2016 12:50PM Instructions Name Dates Details Instructions not documented [...]
--- OUTSIDE RECORDS SUMMARY | 2016-08-25 07:11 | XMS REPORT | Summary of Care ---
Author Author Ervin Castro M.D. Organization Unknown Address [address] [place], [place] [phone] Phone Unavailable Care Team Providers Care Reed Man Name Role Phone Matthew Gonzalez, Jermain Unavailable [...] ONE TABLET BY MOUTH DAILY Quantity: 90 Ervni Castro M.D.* Started 22-May-2011 ActiveHydrochlorothiazide 25 MG [...] STIM. HORMONE 3602 Ordered:06-Jul-2014 Testosterone,Free and Total 315402 Ordered:06-Jul-2014 Immunization Name Dates Details Tdap (Adacel) Lot #: [id number] Administered on:05-Jan-2014 Family History Unknown Family Member* [...] ml/min (Better) Range: >60 EST GFR, NON-AFR CITIZEN OF [place] >60 ml/min (Better) Range: >60 Comments: EST GFR is reported in ml/min per 1.73 m2 of body surface area. For -Mexican, please multiple result by 1.2.----- GLUCOSE 109 [...] Problem not documented On 20-Jun-2013 15:15 Appointment; Ervni Castro Encounter Diagnosis: Problem not documented On 07-Dec-2012 16:00 Appointment; Yenni Guerrero Encounter Diagnosis: Problem not documented On 02-Sep-2012 16:00 Appointment; Ervin Castro Encounter Diagnosis: Problem not documented On 23-Aug-2012 11:00 Appointment; Yenni Guerrero Encounter Diagnosis: Problem not documented On 18-Aug-2012 15:00 Appointment; Ervin Castro Encounter Diagnosis: Problem not documented On 16-Aug-2012 09:00
--- OUTSIDE RECORDS SUMMARY | 2016-08-25 07:11 | XMS REPORT | Summary of Care ---
Author Author Jonathan Fan M.D. Organization Unknown Address [address] [place] [address] [place] [address] Phone Unavailable Care Team Providers Care Director Of Accounting Name Role Phone Jermain Castro M.D. Unavailable [...] urinary tract infection (V13.02, Z87.440) Status: Resolved Medications Name Dates Details Losartan Potassium 50 MG Oral Tablet Take one tablet by mouth daily Quantity: 90 Crater M.D., Ervin A * Start 28-May-2016 Active HydroCHLOROthiazide 25 MG Oral Tablet TAKE ONE TABLET BY MOUTH EVERY DAY DIRECTED * Quantity: 90 Refills: 3 Crater M.D., Ervin A * Start 16-Aug-2012 Active Atorvastatin Calcium 10 MG Oral Tablet take one tablet by mouth every day * Quantity: 90 Refills: 2 Crater M.D., Ervin A * Start 03-Aug-2013 Active Sildenafil Citrate 20 MG Oral Tablet TAKE 5 TABLETS BY MOUTH DAILY NEEDED * Quantity: 90 Refills: 0 Crater M.D., Evrin A * Start Active Saw [place] Oral Capsule * Refills: 0 * Start [...] Name Dates Details Tdap (Adacel) Lot #: [id number] on: 05-Jan-2014 Pneumo (Pneumovax) Lot #: [id number] on: 22-May-2016 Family History Name Dates Details [...] Description Value Details 29-Jun-2016 09:38 URINE CULTURE [id number] Comments: Technitrol performed at: [facility], [address] [place] [address], [phone], Decorative Engraver Apprentice: Jonathan Camacho D.O., MPHQuest Collection Date/Time: [id number] Results Received Date/Time: [id number] Reported Date/Time: [id number] performed at: [facility], [address] [place] [address], [phone], Decorative Engraver Apprentice: Jonathan Camacho D.O., MPHQuest Collection Date/Time: [id number] Results Received Date/Time: [id number] Reported Date/Time: [id number] CULTURE, URINE, ROUTINE SEE NOTE (Abnormal) Comments: CULTURE, URINE, ROUTINE MICRO NUMBER: [id number] TEST STATUS: FINAL SPECIMEN SOURCE : CLEAN CATCH SPECIMEN QUALITY: ADEQUATE RESULT: Greater than 100,000 CFU/mL of Aerococcus urinae Susceptibility testing not routinely performed on this isolate.[[place]]----- Plan of Care Name Dates Details Planned Observations Planned Goals not documented Planned Encounters Appointment; Provider: Ervin Castro M.D. On 22-Jan-2017 13:30 Appointment; Provider: Jonathan Fan M.D. On 13-Aug-2016 15:15 Interventions Provided Medication Changes* Sulfamethoxazole-Trimethoprim 800-160 MG Oral Tablet - Start Instructions Name Dates Details Instructions not documented [...]
--- OUTSIDE RECORDS SUMMARY | 2016-08-25 07:11 | XMS REPORT | Summary of Care ---
Author Ervin Sandoval M.D. Unknown Address [address] [place], [place] [phone] Phone Unavailable Care Team Providers Care Forklift Truck Mechanic Name Role Phone Matthew Gonzalez, A Unavailable [...] Name Dates Details Tdap (Adacel) Lot #: [id number] on: 05-Jan-2014 Pneumo (Pneumovax) Lot #: [id number] on: 22-May-2016 Family History Name Dates Details [...] >60 ml/min Range: >60 EST GFR, NON-AFR [place] 59 ml/min (Below low threshold) Range: >60 Comments: EST GFR is reported in ml/min per 1.73 m2 of body surface area. ----- BUN:CREATININE RATIO 12 GLUCOSE 176 mg/dL (Above high threshold) Range: 70-100 CALCIUM 9.6 mg/dL Range: 8.5-10.1 Plan of Care Name Dates Details Planned Observations Urinalysis, Reflex to Microscopic or Culture PRN [id number] On 05-Jun-2016 Intent Planned Goals not documented Planned Encounters [...]
--- OUTSIDE RECORDS SUMMARY | 2016-08-25 07:11 | XMS REPORT | Summary of Care ---
Author Author Ervin Castro M.D. Organization Unknown Address [address] [place], [place] [phone] Phone Unavailable Care Team Providers Care Veterinary Medicine Scientist Name Role Phone Chris Gonzalez, L Unavailable [...] EVERY DAY DIRECTED * Quantity: 30 Refills: 3 Ervin Castro M.D.* Started 16-Aug-2012 ActiveAtorvastatin Calcium 10 MG Oral Tablet take one tablet by mouth every day * Quantity: 90 Refills: 2 Ervin Castro M.D.* Started 03-Aug-2013 ActiveCiprofloxacin HCl - 500 MG Oral Tablet TAKE 1 TABLET TWICE DAILY. * Quantity: 14 Refills: 0 Eric Perez M.D.* Started 27-Jun-2015 ActiveMedrol 4 MG Oral Tablet Therapy Pack TAKE MEDROL DOSEPAK DIRECTED PER PKG INSTRUCTION CARD. * Quantity: 1 Refills: 0 Ervin Castro M.D.* Started 26-Aug-2015 Cuojyx69 Tablet Therapy Pack Box Allergies and Adverse [...] Complete Colonoscopy History of Complete Colonoscopy Completed:11-Dec-2011 CBC w/ Auto Diff 7150 Ordered: Comprehensive Metabolic Panel 1212 Ordered: LIPID PROFILE 1184 Ordered: PSA ( PROSTATE SPECIFIC ANTIGEN) 3100 Ordered: Immunization Name Dates Details Tdap (Adacel) Lot #: [id number] Administered on:05-Jan-2014 Family History Unknown Family Member* [...] smoker Vital Signs Date Test Result Details No Known Vitals to report Results Date Description Value Details Results not [...] Problem not documented On 21-May-2014 13:00 Appointment; Erivn Castro Encounter Diagnosis: Problem not documented On 05-Jan-2014 10:15 Appointment; Bull Lawrence Encounter Diagnosis: Problem not documented On 11:00
--- OUTSIDE RECORDS SUMMARY | 2016-08-25 07:11 | XMS REPORT ---
Author Author Yenni Guerrero Organization Unknown Address [address] [place], [place] [phone] Phone Care Team Providers Care Loans Officer Name Role Phone Matthew Mueller PP Unavailable Unavailable Reason for Referral No Reason for Referral was given. Chief Complaint HCPA Text Box CC: Chest pain, dull ache for past 2 weeks. History of Present Illness No HPI available. Problems * Normal Routine History And Physical Adult (V70.0); (Active) * Hematuria (599.70); (Active) * Serology Prostate-specific Antigen (PSA) Elevated (790.93); (Active) * Angina Pectoris (413.9); (Active) * Hypertension (401.9); (Active) Medication * Atorvastatin Calcium 10 MG Oral Tablet; take one tablet by mouth every day; Start Date: 05/23/2012; End Date: (Active) * Losartan Potassium 100 MG Oral Tablet; TAKE 1 TABLET DAILY.; Start Date: 05/22; End Date: (Active) * Hydrochlorothiazide 25 MG Oral Tablet; TAKE 1 TABLET DAILY DIRECTED.; Start Date: 08/16/2012; End Date: (Active) Allergies and Adverse Reactions * No Known Drug Allergies (Active) Past Medical History * History of Hyperlipoproteinemia (272.4); (Resolved) * History of Hepatitis (573.3); (Resolved) * History of Nephrolithiasis (V13.01); (Resolved) Procedures Procedure Procedure Date Date Completed Status Knee Surgery - - Active Surgery Of Male Genitalia Vasectomy - - Active Complete Colonoscopy - - Active Complete Colonoscopy 12/11/2011 - Active Family History * Family history of Cancer (Active) * Family history of Nephrolithiasis (Active) * Family history of Diabetes Mellitus (V18.0); (Active) * Family history of Hypertension (V17.49); (Active) * Family history of Acute Myocardial Infarction (V17.3); (Active) * Family history of Colon Cancer (V16.0); (Active) * Paternal grandfather's history of Acute Myocardial Infarction (V17.3); (Active) * Paternal history of Acute Myocardial Infarction (V17.3); (Active) Social History * Tobacco Use (V15.82); (Active) * Current Smoker (Active) * Former Smoker (V15.82); (Active) * Marital History - Currently (Active) Vital Signs Date Description Test Result 18 Aug 2012 02:56 PM recorded by: Susan Pierre Height 73 in Weight 209 lb Body Mass Index Calculated 27.7 Body Surface Area Calculated 2.19 Heart Rate 72 /min Pulse Regular Resipration Rate 16 /min Respiratory Rate Normal BP Systolic 130 mm[Hg] BP Diastolic 80 mm[Hg] 16 Aug 2012 09:03 AM recorded by: Nasima Keating Weight 209.8 lb Body Mass Index Calculated 27.81 Body Surface Area Calculated 2.19 BP Systolic 146 mm[Hg] BP Diastolic 90 mm[Hg] Heart Rate 69 /min O2 SAT 99 % Treatment Plan * Annotations 1000 05/18/2011 Routine Advance Directives * No Advance Directives available. Encounters * Appointment 08/18/2012 * AMARA , Provider: Matthew Mueller, Status: Jarad , Time: 11:00 AM 08/23 * [id number] , Provider: Matthew Mueller, Status: Jarad , Time: 4:00 PM 2012
--- OUTSIDE RECORDS SUMMARY | 2016-08-25 07:11 | XMS REPORT | Summary of Care ---
Author Author Jonathan Fan M.D. Organization Unknown Address [address] [place] [address] [place] [address] Phone Unavailable Care Team Providers Care Label Stitcher Name Role Phone Jermain Castor M.D. Unavailable Unavailable Jonathan Fan M.D. Unavailable [...] of organic origin (607.84, N52.9) Status: Active Incomplete bladder emptying (788.21, R33.9) Status: Active History of urinary tract infection (V13.02, Z87.440) Status: Resolved Pre-operative cardiovascular examination (V72.81, Z01.810) Status: Active Normal stress echocardiogram Status: Active BPH with obstruction/lower urinary tract symptoms (600.01, N40.1) Status: Active Stone, bladder, diverticulum (594.0, N21.0) Status: Active Medications Name Dates Details Losartan Potassium 50 MG Oral Tablet Take one tablet by mouth daily Quantity: 90 Crater M.Julito.Ervin * Start 28-May-2016 Active HydroCHLOROthiazide 25 MG [...] DAILY NEEDED * Quantity: 90 Refills: 0 Celineter M.DErvin Emmanuel * Start Active Saw [place] Oral Capsule * Refills: 0 * Start 25-Jun-2016 Active Tamsulosin HCl - 0.4 MG Oral Capsule TAKE 1 CAPSULE BY MOUTH AT BEDTIME * Quantity: 30 Refills: 0 Cho Herrera.OllieJonathan * Start 25-Jun-2016 Active Sulfamethoxazole-Trimethoprim 800-160 MG Oral Tablet 1 tablet bid x 30 days * Quantity: 60 Refills: 0 Cho Herrera.Julito.Jonathan * Start 23-Jul-2016 Active Allergies and Adverse [...] Name Dates Details Tdap (Adacel) Lot #: [id number] on: 05-Jan-2014 Pneumo (Pneumovax) Lot #: [id number] on: 22-May-2016 Family History Name Dates Details [...] Dates Details Instructions not documented Encounters Appointment; Yenni Guerrero M.D. Encounter Diagnosis: Problem not documented On 12-Aug-2016 14:30 Appointment; Jonathan Fan M.D. Encounter Diagnosis: Problem [...]
--- OUTSIDE RECORDS SUMMARY | 2016-08-25 07:12 | XMS REPORT | Summary of Care ---
Author Author Ervin Castro M.D. Organization Unknown Address [address] [place], [place] [phone] Phone Unavailable Care Team Providers Care Quarter Inspector Name Role Phone Matthew Gonzalez, Jermain Unavailable [...] Refills: 0 Ervin Castro M.D.* Started 21-May-2014 [id number] Tablet Disp Pack Proventil HFA 108 (90 [...] Colonoscopy Completed:11-Dec-2011 CBC w/ Auto Diff 7150 Ordered:02-Jul-2014 Comprehensive Metabolic Panel 1212 Ordered:02-Jul-2014 LIPID PROFILE 1184 Ordered:02-Jul-2014 PSA ( PROSTATE SPECIFIC ANTIGEN) 3100 Ordered:02-Jul-2014 Immunization Name Dates Details Tdap (Adacel) Lot #: [id number] Administered on:05-Jan-2014 Family History Unknown Family Member* [...]
--- OUTSIDE RECORDS SUMMARY | 2016-08-25 07:12 | XMS REPORT | Summary of Care ---
Author Author Ervin Castro M.D. Organization Unknown Address [address] [place], [place] [id number] Phone Unavailable Care Team Providers Care Salesperson Flowers Name Role Phone Matthew Gonzalez, Jermain Unavailable [...] specific antigen (PSA) (790.93, R97.2) Status: Active Medications Name Dates Details Losartan [...] Refills: 3 Ervin Castro M.D.* Started 03-Aug-2013 Active Allergies and Adverse Reactions Name Dates [...] Name Dates Details Tdap (Adacel) Lot #: [id number] Administered on:05-Jan-2014 Family History Unknown Family Member* [...] smoker Vital Signs Date Test Result Details 17-May-2015 14:12 BP Systolic 122 mm[Hg] Status: BP Diastolic 68 mm[Hg] Status: Heart Rate 61 /min Status: Weight 239.5 lb Status: O2 SAT 96 % Status: Body Mass Index Calculated 31.6 kg/m2 Status: Body Surface Area Calculated 2.32 m2 Status: Results Date Description Value Details 13-May-2015 09:08 CBC w/ Auto Diff 7150 WBC 9.8 K/uL (Better) Range: 4.5-11.0 RBC 5.54 mil/uL (Above high threshold) Range: 4.20-5.40 HGB 16.5 g/dL (Better) Range: 14.0-18.0 HCT 50.3 % (Better) Range: 42.0-53.0 MCV 90.8 fL (Better) Range: 80.0-99.0 MCH 29.8 pg (Better) Range: 27.3-32.5 MCHC 32.9 % (Better) Range: 32.0-36.0 RDW 13.8 % (Better) Range: 11.6-14.8 PLATELETS 236 K/uL (Better) Range: 150-400 MPV 8.1 fL (Better) Range: 6.0-11.0 %NEUTRO 72.9 % (Better) Range: 37.0-80.0 %LYMPHS 16.5 % (Better) Range: 13.0-50.0 %MONO 6.8 % (Better) Range: 0.0-12.0 %EOS 2.2 % (Better) Range: 0.0-7.0 %BASO 0.2 % (Better) Range: 0.0-2.5 %JAMIL 1.3 % (Better) Range: 0.0-5.0 NEUTRO 7.1 K/uL (Above high threshold) Range: 2.0-6.9 LYMPHS 1.6 K/uL (Better) Range: 0.6-3.4 MONOS 0.7 K/uL (Better) Range: 0.0-0.9 EOS 0.2 K/uL (Better) Range: 0.0-0.7 BASO 0.0 K/uL (Better) Range: 0.0-0.2 09:30 Comprehensive Metabolic Panel 1212 SODIUM 142 mmol/L (Better) Range: 133-144 POTASSIUM 3.6 mmol/L (Better) Range: 3.5-5.1 CHLORIDE 103 mmol/L (Better) Range: 98-110 CARBON DIOXIDE 25.8 mmol/L (Better) Range: 23.0-33.0 ANION GAP 13 mmol/L (Better) Range: 6-16 BUN 17 mg/dL (Better) Range: 7-18 CREATININE, SERUM 1.48 mg/dL (Above high threshold) Range: 0.70-1.30 Comments: Please note new reference ranges effective 2014.----- BUN:CREATININE RATIO 11 (Better) EST GFR, 58 ml/min (Below low threshold) Range: >60 EST GFR, NON-AFR RUSSIAN 48 ml/min (Below low threshold) Range: >60 Comments: EST GFR is reported in ml/min per 1.73 m2 of body surface area. For -Bahamian, please multiple result by 1.2.----- GLUCOSE 133 mg/dL (Above high threshold) Range: 70-100 ALK PHOSPHATASE 76 U/L (Better) Range: 46-116 TOTAL BILIRUBIN 0.50 mg/dL (Better) Range: 0.20-1.00 AST 28 U/L (Better) Range: 8-35 ALT 60 U/L (Better) Range: 16-63 Comments: Please note new reference ranges. Effective 07/12/2014.----- ALBUMIN 4.2 g/dL (Better) Range: 3.4-5.0 TOTAL PROTEIN 8.0 g/dL (Better) Range: 6.4-8.2 A/G RATIO 1.1 units (Better) Range: 1.0-1.8 CALCIUM 9.2 mg/dL (Better) Range: 8.5-10.1 09:30 LIPID PROFILE 1184 CHOLESTEROL 162 mg/dL (Better) Range: <200 TRIGLYCERIDES 106 mg/dL (Better) Range: 30-200 HDL Cholesterol 43 mg/dL (Better) Range: >39 NON HDL CHOLESTEROL 119 (Better) CARDIAC RSK FACTOR 3.8 units (Below low threshold) Range: 4.4-5.0 LDL - CALCULATED 98 mg/dL (Better) Range: 0-130 Plan of Care Planned Observations* Name Dates [...]
--- OUTSIDE RECORDS SUMMARY | 2016-08-25 07:12 | XMS REPORT | Summary of Care ---
Author Author Kg Bowen D.O. Organization Unknown Address [address] [place], [place] [phone] Phone Unavailable Care Team Providers Care Ore Miner Name Role Phone Matthew Gonzalez, A Unavailable Unavailable Ervin Castro PP Unavailable Unavailable [...] Colonoscopy Completed:11-Dec-2011 Comprehensive Metabolic Panel 1212 Ordered:17-May-2015 Urinalysis, Reflex to Microscopic or Culture PRN [id number] Ordered:27-Jun-2015 Immunization Name Dates Details Tdap (Adacel) Lot #: [id number] Administered on:05-Jan-2014 Family History Unknown Family Member* [...] Instructions * Instructions not documented Encounters Appointment; Gonzales Richardson Encounter Diagnosis: Problem not documented On 27-Jun-2015 [...]
--- OUTSIDE RECORDS SUMMARY | 2016-08-25 07:12 | XMS REPORT | Summary of Care ---
Author Author Ervin Castro M.D. Organization Unknown Address [address] [place], [place] [phone] Phone Unavailable Care Team Providers Care Hydraulic Plumber Helper Name Role Phone Matthew Gonzalez, Jermain Unavailable [...] Refills: 2 Ervin Castro M.D.* Started 16-Aug-2012 ActiveProventil HFA 108 (90 Base) MCG/ACT Inhalation Aerosol Solution INHALE 1 TO 2 PUFFS EVERY 6 HOURS NEEDED. * Quantity: 1 Refills: 1 Ervin Castro M.D.* Started 21-May-2014 Active6.7 GM Inhaler Atorvastatin Calcium 10 MG Oral Tablet take [...] Colonoscopy Completed:11-Dec-2011 CBC w/ Auto Diff 7150 Ordered:07-May-2015 Comprehensive Metabolic Panel 1212 Ordered:07-May-2015 LIPID PROFILE 1184 Ordered:07-May-2015 Immunization Name Dates Details Tdap (Adacel) Lot #: [id number] Administered on:05-Jan-2014 Family History Unknown Family Member* [...] Planned Encounters* Appointment; Provider: Ervin Castro On 17-May-2015 13:30 * Appointment; Provider: Jj Shaw On 11-Dec-2011 [...]
--- OUTSIDE RECORDS SUMMARY | 2016-08-25 07:12 | XMS REPORT | Summary of Care ---
Author Author Ervin Castro M.D. Organization Unknown Address [address] [place], [place] [phone] Phone Unavailable Care Team Providers Care Freelance Art Director Name Role Phone Chris Gonzalez, L Unavailable [...] tablet by mouth daily Quantity: 90 Ervin Casrto M.D.* Started 22-May-2011 ActiveHydroCHLOROthiazide 25 MG Oral Tablet TAKE ONE TABLET [...] Name Dates Details Tdap (Adacel) Lot #: [id number] Administered on:05-Jan-2014 Family History Unknown Family Member* [...] smoker Vital Signs Date Test Result Details 13:06 BP Systolic 142 mm[Hg] Status: BP Diastolic 90 mm[Hg] Status: Heart Rate 68 /min Status: Weight 230 lb Status: O2 SAT 96 % Status: Body Mass Index Calculated 30.35 kg/m2 Status: Body Surface Area Calculated 2.28 m2 Status: Results Date Description Value Details 09:08 CBC w/ Auto Diff 7150 Comments: Fastin hours WBC 7.4 K/uL (Better) Range: 4.5-11.0 RBC 5.34 mil/uL (Better) Range: 4.20-5.40 HGB 15.8 g/dL (Better) Range: 14.0-18.0 HCT 48.1 % (Better) Range: 42.0-53.0 MCV 90.0 fL (Better) Range: 80.0-99.0 MCH 29.5 pg (Better) Range: 27.3-32.5 MCHC 32.8 % (Better) Range: 32.0-36.0 RDW 14.7 % (Better) Range: 11.6-14.8 PLATELETS 275 K/uL (Better) Range: 150-400 MPV 8.0 fL (Better) Range: 6.0-11.0 %NEUTRO 68.4 % (Better) Range: 37.0-80.0 %LYMPHS 20.5 % (Better) Range: 13.0-50.0 %MONO 6.1 % (Better) Range: 0.0-12.0 %EOS 2.9 % (Better) Range: 0.0-7.0 %BASO 0.3 % (Better) Range: 0.0-2.5 %JAMIL 1.8 % (Better) Range: 0.0-5.0 NEUTRO 5.1 K/uL (Better) Range: 2.0-6.9 LYMPHS 1.5 K/uL (Better) Range: 0.6-3.4 MONOS 0.5 K/uL (Better) Range: 0.0-0.9 EOS 0.2 K/uL (Better) Range: 0.0-0.7 BASO 0.0 K/uL (Better) Range: 0.0-0.2 09:28 Comprehensive Metabolic Panel 1212 Comments: Fastin hours SODIUM 138 mmol/L (Better) Range: 133-144 POTASSIUM 3.8 mmol/L (Better) Range: 3.5-5.1 CHLORIDE 100 mmol/L (Better) Range: 98-110 CARBON DIOXIDE 24.1 mmol/L (Better) Range: 23.0-33.0 ANION GAP 14 mmol/L (Better) Range: 6-16 BUN 20 mg/dL (Above high threshold) Range: 7-18 CREATININE, SERUM 1.32 mg/dL (Above high threshold) Range: 0.70-1.30 Comments: Please note new reference ranges effective 2014.----- BUN:CREATININE RATIO 15 (Better) EST GFR, >60 ml/min (Better) Range: >60 EST GFR, NON-AFR [place] 54 ml/min (Below low threshold) Range: >60 Comments: EST GFR is reported in ml/min per 1.73 m2 of body surface area. For -Singaporean, please multiple result by 1.2.----- GLUCOSE 110 mg/dL (Above high threshold) Range: 70-100 ALK PHOSPHATASE 64 U/L (Better) Range: 46-116 TOTAL BILIRUBIN 0.70 mg/dL (Better) Range: 0.20-1.00 AST 29 U/L (Better) Range: 8-35 ALT 47 U/L (Better) Range: 16-63 Comments: Please note new reference ranges. Effective 07/12/2014.----- ALBUMIN 4.0 g/dL (Better) Range: 3.4-5.0 TOTAL PROTEIN 7.4 g/dL (Better) Range: 6.4-8.2 A/G RATIO 1.2 units (Better) Range: 1.0-1.8 CALCIUM 9.0 mg/dL (Better) Range: 8.5-10.1 09:28 LIPID PROFILE 1184 Comments: Fastin hours CHOLESTEROL 153 mg/dL (Better) Range: <200 TRIGLYCERIDES 70 mg/dL (Better) Range: 30-200 HDL Cholesterol 51 mg/dL (Better) Range: >39 NON HDL CHOLESTEROL 102 (Better) CARDIAC RSK FACTOR 3.0 units (Below low threshold) Range: 4.4-5.0 LDL - CALCULATED 88 mg/dL (Better) Range: 0-130 09:39 PSA ( PROSTATE SPECIFIC ANTIGEN) 3100 Comments: Fastin hours PROSTATE SPECIFIC ANTIGEN 0.970 ng/mL (Better) Range: 0.000-4.000 Plan of Care Planned Observations* Name Dates Details Planned Goals not documented Goal Planned Encounters* Appointment; Provider: Jj Shaw On 11-Dec-2011 08:00 Instructions * Instructions not documented Encounters Appointment; Ervin Castro Encounter Diagnosis: Problem not documented On 13:00 Appointment; Ervin Castro Encounter Diagnosis: Problem [...] not documented On 07-Aug-2014 10:00 Appointment; Ervin aCstro Encounter Diagnosis: Problem not documented On 03-Aug-2014 13:45 Appointment; Ervin Castro Encounter Diagnosis: Problem not documented On 06-Jul-2014 10:30 Appointment; Ervin Castro Encounter Diagnosis: Problem not documented On 21-May-2014 13:00 Appointment; Ervin Castro Encounter Diagnosis: Problem not documented On 05-Jan-2014 10:15
--- OUTSIDE RECORDS SUMMARY | 2016-08-25 07:12 | XMS REPORT | Summary of Care ---
Author Author Ervin Castro M.D. Organization Unknown Address [address] [place], [place] [phone] Phone Unavailable Care Team Providers Care Manager Hotel Name Role Phone Matthew Gonzalez, Jermain Unavailable [...] Name Dates Details Tdap (Adacel) Lot #: [id number] Administered on:05-Jan-2014 Family History Unknown Family Member* [...] of age----- 10-Jul-2014 12:21 Testosterone,Free and Total [id number] Comments: TESTING PERFORMED AT: [DA] [facility] [place], [address], [place], [address], PHONE: [phone], CAFETERIA SERVER: HARMONY SY MDTESTING PERFORMED AT: [BN] [facility], [address], [place], [address], PHONE: [phone], CAFETERIA SERVER: JULIO C DOWNING MD TESTOSTERONE, SERUM 435 [...]
--- OUTSIDE RECORDS SUMMARY | 2016-08-25 07:12 | XMS REPORT | Summary of Care ---
Author Author Ervin Castro M.D. Organization Unknown Address [address] [place], [place] [phone] Phone Unavailable Care Team Providers Care Fruit Harvest Worker Name Role Phone Matthew Gonzalez, Jermain Unavailable [...] Refills: 3 Ervin Castro M.D.* Started 03-Aug-2013 ActiveProventil HFA [...] Name Dates Details Tdap (Adacel) Lot #: [id number] Administered on:05-Jan-2014 Family History Unknown Family Member* [...]
--- OUTSIDE RECORDS SUMMARY | 2016-08-25 07:12 | XMS REPORT | Summary of Care ---
Author Author Jonathan Fan M.D. Organization Unknown Address [address] [place] [address] [place] [address] Phone Unavailable Care Team Providers Care Account Development Representative Name Role Phone Jermain Castro M.D. Unavailable [...] M.D., Ervin Aly * Start Active Saw [place] Oral Capsule * Refills: 0 * Start [...] Colonoscopy History of Complete Colonoscopy Completed: 11-Dec-2011 URINE CULTURE [id number] Ordered: 25-Jun-2016 Immunization Name Dates Details Tdap (Adacel) Lot #: [id number] on: 05-Jan-2014 Pneumo (Pneumovax) Lot #: [id number] on: 22-May-2016 Family History Name Dates Details [...] /HPF Range: 0-10 08-Jun-2016 08:21 URINE CULTURE [id number] Comments: [employer] [facility] performed at: [facility], [address] [place] [address], [address], Lumber Stacker Driver: Jonathan Camacho D.O., MPHQuest Collection Date/Time: [id number] Results Received Date/Time: [id number] Reported Date/Time: [id number] performed at: [facility], [address] [place] [address], [address], Lumber Stacker Driver: Jonathan Camacho D.O., MPHQuest Collection Date/Time: [id number] Results Received Date/Time: [id number] Reported Date/Time: [id number] CULTURE, URINE, ROUTINE SEE NOTE (Abnormal) Comments: CULTURE, URINE, ROUTINE MICRO NUMBER: [id number] TEST STATUS: FINAL SPECIMEN SOURCE : URINE SPECIMEN QUALITY: ADEQUATE RESULT: 10,000-50,000 CFU/mL of Streptococcus viridans group May represent colonizers from external and internal genitalia. No further testing ( including susceptibility) will be performed.[KS]----- Plan of Care Name Dates Details Planned Observations Planned Goals not documented Planned Encounters Appointment; Provider: Ervin Castro M.D. On 22-Jul-2016 13:15 Appointment; Provider: Jonathan Fan M.D. On 13-Jul-2016 16:00 Interventions Provided Medication Changes* Amoxicillin-Pot Clavulanate 875-125 MG Oral Tablet - Start * Tamsulosin HCl - 0.4 MG Oral Capsule - Start Labs/Procedures/Imaging* URINE CULTURE [id number]; To be Done: 25 Jun 2016 Instructions Name Dates Details Instructions not documented [...] Diagnosis: Problem not documented On 13:30 Appointment; Blul Lawrence P.T. Encounter Diagnosis: Problem not documented On 07-Aug-2014 10:00 Appointment; Ervin Castro M.D. Encounter Diagnosis: Problem not documented On 03-Aug-2014 13:45 Appointment; Ervin Castro M.D. Encounter Diagnosis: Problem not documented On 06-Jul-2014 10:30
--- OUTSIDE RECORDS SUMMARY | 2016-08-25 07:12 | XMS REPORT | Summary of Care ---
Author Author Ervin Castro M.D. Organization Unknown Address [address] [place], [place] [phone] Phone Unavailable Care Team Providers Care Critical Care Nurse Name Role Phone Chris Gonzalez, Jessenia Unavailable Unavailable Matthew Gonzalez, Jermain Unavailable Unavailable Ervin Castro PP Unavailable Unavailable Unavailable Functional Status Functional Status Health Issues* Name Dates Details Functional status health issues are not documented Status: Cognitive Status Health Issues* Name Dates Details Cognitive status health issues are not documented Status: Problems Name Dates Details Hematuria (599.70, R31.9) Status: Active Hypertension (401.9, I10) Status: Active UTI (lower urinary tract infection) (599.0, N39.0) Status: Active Angina pectoris (413.9, I20.9) Status: Active Hyperlipidemia (272.4, E78.5) Status: Active Elevated prostate specific antigen (PSA) (790.93, R97.2) Status: Active Dysuria (788.1, R30.0) Status: Active Atypical chest pain (786.59, R07.89) Status: Active Medications Name Dates Details Losartan Potassium 50 MG Oral Tablet Take one tablet by mouth daily Quantity: 90 Ervin Castro M.D.* Started 22-May-2011 ActiveHydrochlorothiazide 25 MG Oral Tablet TAKE ONE TABLET BY MOUTH EVERY DAY DIRECTED * Quantity: 30 Refills: 3 Ervin Castro M.D.* Started 16-Aug-2012 ActiveCiprofloxacin HCl - 500 MG Oral Tablet TAKE 1 TABLET TWICE DAILY. * Quantity: 14 Refills: 0 Eric Perez M.D.* Started 27-Jun-2015 ActiveMedrol 4 MG Oral Tablet Therapy Pack TAKE MEDROL DOSEPAK DIRECTED PER PKG INSTRUCTION CARD. * Quantity: 1 Refills: 0 Ervin Castro M.D.* Started 26-Aug-2015 [id number] Tablet Therapy Pack Box Atorvastatin Calcium 10 MG Oral Tablet take [...] Resolved Procedures Procedure Dates Details History of Complete Colonoscopy Completed:11-Dec-2011 History of Complete Colonoscopy History of Surgery Vas Deferens Vasectomy History of Knee Surgery Procedures not documented Immunization Name Dates Details Tdap (Adacel) Lot #: [id number] Administered on:05-Jan-2014 Family History Unknown Family Member* Name Dates Details Family history of Cancer Comments: Family History Status: Active Family history of Nephrolithiasis Comments: Family History Status: Active Family history of Colon Cancer (V16.0) Comments: Family History Status: Active Family history of Acute Myocardial Infarction (V17.3) Comments: Family History Status: Active Family history of Hypertension (V17.49) Comments: Family History Status: Active Family history of Diabetes Mellitus (V18.0) Comments: Family History Status: Active Grandfather* Name [...]
--- OUTSIDE RECORDS SUMMARY | 2016-08-25 07:12 | XMS REPORT | Summary of Care ---
Author Author Ervin Castro M.D. Organization Unknown Address [address] [place], [place] [phone] Phone Unavailable Care Team Providers Care Tipple Repairer Name Role Phone Matthew Gonzalez, Jermain Unavailable [...] Name Dates Details Tdap (Adacel) Lot #: [id number] Administered on:05-Jan-2014 Family History Unknown Family Member* [...] smoker Vital Signs Date Test Result Details 13:29 BP Systolic 128 mm[Hg] Status: BP Diastolic 80 mm[Hg] Status: Heart Rate 71 /min Status: Weight 237.375 lb Status: O2 SAT 95 % Status: Body Mass Index Calculated 31.32 kg/m2 Status: Body Surface Area Calculated 2.31 [...]
--- OUTSIDE RECORDS SUMMARY | 2016-08-25 07:12 | XMS REPORT | Summary of Care ---
Author Author Ervin Castro M.D. Organization Unknown Address [address] [place], [place] [phone] Phone Unavailable Care Team Providers Care Children'S Aide Name Role Phone Matthew Gonzalez, Jermain Unavailable [...] STIM. HORMONE 3602 Ordered:06-Jul-2014 Testosterone,Free and Total [id number] Ordered:06-Jul-2014 Immunization Name Dates Details Tdap (Adacel) Lot #: [id number] Administered on:05-Jan-2014 Family History Unknown Family Member* [...] ml/min (Better) Range: >60 EST GFR, NON-AFR SENEGALESE >60 ml/min (Better) Range: >60 Comments: EST GFR is reported in ml/min per 1.73 m2 of body surface area. For -Wallisian, please multiple result by 1.2.----- GLUCOSE 109 [...] not documented On 18-Aug-2012 15:00 Appointment; Ervin aCstro Encounter Diagnosis: Problem not documented On 16-Aug-2012 09:00
--- OUTSIDE RECORDS SUMMARY | 2016-08-25 07:13 | XMS REPORT | Summary of Care ---
Author Author Ervin Castro M.D. Unknown Address [address] [place], [place] [phone] Phone Unavailable Care Team Providers Care Navigation Officer Name Role Phone Matthew Gonzalez, Jermain Unavailable Unavailable Ervin Castro Unavailable Unavailable Unavailable Unavailable Functional Status Name Dates Details Functional status health issues are not documented Status: Name Dates Details Cognitive status health issues are not documented Status: Problems Name Dates Details Angina pectoris (413.9, I20.9) Status: Active Hematuria (599.70, R31.9) Status: Active Dysuria (788.1, R30.0) Status: Active Elevated prostate specific antigen (PSA) (790.93, R97.2) Status: Active Hyperlipidemia (272.4, E78.5) Status: Active Hypertension (401.9, I10) Status: Active Atypical chest pain (786.59, R07.89) Status: Active 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, N52.9) Status: Active Medications Name Dates Details Losartan Potassium 50 MG Oral Tablet Take one tablet by mouth daily Quantity: 90 Crater M.D., Ervin A * Start 22-May-2011 Active HydroCHLOROthiazide 25 MG Oral Tablet TAKE ONE TABLET BY MOUTH EVERY DAY DIRECTED * Quantity: 30 Refills: 3 Crater M.D., Ervin A * Start 16-Aug-2012 Active Atorvastatin Calcium 10 MG Oral Tablet take one tablet by mouth every day * Quantity: 90 Refills: 2 Crater M.D., Ervin A * Start 03-Aug-2013 Active Sildenafil Citrate 20 MG Oral Tablet TAKE 5 TABLETS BY MOUTH DAILY NEEDED * Quantity: 90 Refills: 0 Crater M.D., Ervin A * Start Active Allergies and [...] Name Dates Details Tdap (Adacel) Lot #: [id number] on: 05-Jan-2014 Family History Name Dates Details Family history [...] Details Smoker. current status unknown Former smoker Vital Signs Date Test Result Details No Known Vitals to report Results Date Description Value Details Results not documented Plan of Care Name Dates Details Planned Observations Planned Goals not documented Planned Encounters Appointment; Provider: Ervin Castro M.D. On 22-May-2016 13:15 Interventions Provided Medication Changes* Ciprofloxacin HCl - 500 MG Oral Tablet - Completed Instructions Name Dates Details Instructions not documented [...] documented On 06-Jul-2014 10:30 Appointment; Ervin Castro M.D. Encounter Diagnosis: Problem not documented On 21-May-2014 13:00 Appointment; Ervin Castro M.D. Encounter Diagnosis: Problem not documented On 05-Jan-2014 10:15
--- OUTSIDE RECORDS SUMMARY | 2016-08-25 07:13 | XMS REPORT | Summary of Care ---
Author Author Honey Willis Organization Unknown Address [address] [place] [address] Phone Unavailable Care Team Providers Care Locomotive Repairer Diesel Name Role Phone Matthew Gonzalez, Jermain Unavailable Unavailable Honey Willis Unavailable Unavailable Ervin [...] (urinary tract infection) (599.0, N39.0) Status: Active Medications [...] NEEDED * Quantity: 90 Refills: 0 Matthew M.D., Ervin Aly * Start Active Sulfamethoxazole-Trimethoprim 800-160 MG Oral Tablet TAKE 1 TABLET PO EVERY 12 HOURS X 10 DAYS * Quantity: 20 Refills: 0 Honey Willis * Start 21-Feb-2016 Active Allergies and Adverse Reactions Name Dates [...] Name Dates Details Tdap (Adacel) Lot #: [id number] on: 05-Jan-2014 Family History Name Dates Details [...] smoker Vital Signs Date Test Result Details 21-Feb-2016 10:41 BP Systolic 131 mm[Hg] Status: Comments: Location: ; Position: BP Diastolic 88 mm[Hg] Status: Comments: Location: ; Position: Temperature 98.1 f Status: Comments: Method: Heart Rate 63 /min Status: Comments: Location: ; Physical Findings 98 Status: Comments: O2 Saturation Results Date Description Value Details 21-Feb-2016 11:01 Urinalysis, Reflex to Microscopic or Culture PRN 8005 pH 7.0 Range: 5.0-7.5 SP GRAVITY 1.015 Range: 1.010-1.030 APPEARANCE CLOUDY (Abnormal) Range: Clear COLOR YELLOW Range: Straw-Yellow PROTEIN NEGATIVE mg/dL Range: Negative-Trace GLUCOSE NEGATIVE mg/dL Range: Negative KETONE NEGATIVE mg/dL Range: Negative BILIRUB NEGATIVE Range: Negative BLOOD NEGATIVE Range: Negative UROBIL 1.0 EU/dL Range: 0.2-1.0 NITRITE POSITIVE (Abnormal) Range: Negative Comments: Specimen referred to Reference Lab for Culture----- LEUK MODERATE (Abnormal) Range: Negative 11:01 Urine Microscopic UMIC WBC 6-10 /HPF (Abnormal) Range: 0-5 Comments: Specimen referred to Reference Lab for Culture----- HYAL CAST 0-2 /LPF Range: 0-2 BACTERIA 4+ /HPF (Abnormal) Range: Negative-Trace Comments: Specimen referred to Reference Lab for Culture----- EPITH 0-2 /HPF Range: 0-10 Plan of Care Name Dates Details Planned Observations Planned Goals not documented Planned Encounters Appointment; Provider: Ervin Castro M.D. On 22-May-2016 13:15 Interventions Provided Medication Changes* Sulfamethoxazole-Trimethoprim 800-160 MG Oral Tablet - Start Labs/Procedures/Imaging* Urinalysis, Reflex to Microscopic or Culture PRN 8005; Done: Feb 21 2016 10:35AM Instructions Name Dates Details Instructions not documented [...] Problem not documented On 13:30 Appointment; Bull Lawrence, P.TLien Encounter Diagnosis: Problem not documented On 07-Aug-2014 10:00 Appointment; Ervin Castro M.D. Encounter Diagnosis: Problem not documented On 03-Aug-2014 13:45 Appointment; Ervin Castro M.D. Encounter Diagnosis: Problem not documented On 06-Jul-2014 10:30 Appointment; Ervin Castro M.D. Encounter Diagnosis: Problem not documented On 21-May-2014 13:00
--- OUTSIDE RECORDS SUMMARY | 2016-08-25 07:13 | XMS REPORT | Summary of Care ---
Author Author Provider, Outside Organization Unknown Address Unknown Phone Unavailable Care Team Providers Care Operation Research Analyst Name Role Phone Matthew Gonzalez, Jermain Unavailable [...] tablet by mouth daily Quantity: 90 Matthew Silverman.Julito., Ervin Aly * Start 22-May-2011 Active HydroCHLOROthiazide 25 MG Oral Tablet TAKE ONE TABLET BY MOUTH EVERY DAY DIRECTED * Quantity: 90 Refills: 3 Matthew Silverman.Julito.Ervin Start 16-Aug-2012 Active Atorvastatin Calcium 10 MG Oral Tablet take one tablet by mouth every day * Quantity: 90 Refills: 2 Matthew M.D., Ervin Aly * Start 03-Aug-2013 Active Sildenafil Citrate 20 MG Oral Tablet TAKE 5 TABLETS BY MOUTH DAILY NEEDED * Quantity: 90 Refills: 0 Matthew Silverman.Ervin Levin * Start Active Sulfamethoxazole-Trimethoprim 800-160 MG Oral Tablet TAKE 1 TABLET PO EVERY 12 HOURS X 10 DAYS * Quantity: 20 Refills: 0 Honey Willis * Start 21-Feb-2016 Active LevoFLOXacin 250 MG Oral Tablet 1 daily x 10 days * Quantity: 10 Refills: 0 Ervin Castro M.D. Start 17-Mar-2016 Active Allergies and Adverse Reactions [...] Colonoscopy History of Complete Colonoscopy Completed: 11-Dec-2011 BASIC METABOLIC PROFILE 1210 Ordered: 12-May-2016 Immunization Name Dates Details Tdap (Adacel) Lot #: [id number] on: 05-Jan-2014 Family History Name Dates Details [...] Provider: Ervin Castro M.D. On 22-May-2016 13:15 Appointment; Provider: Jj Shaw M.D.|NISHI Kuo|Carlos,NISHI, On 11-Dec-2011 08:00 Instructions Name Dates Details Instructions not documented [...] Encounter Diagnosis: Problem not documented On 21-May-2014 13:00"
[2016-08-25] MEDS ORDERED: LEVOFLOXACIN 500 mg IVPB 500 MG in D5W 100 ML IV ONE (07:30)
[2016-08-25 07:50] LABS: BASOPHILS % (AUTO) 0.3 % (0-2); EOSINOPHILS # (AUTO) 0.3 T/MM3 (0-0.5); EOSINOPHILS % (AUTO) 3.5 % (0-4); HCT - HEMATOCRIT 45.2 % (41-53); HGB - HEMOGLOBIN 15.1 GM/DL (13.5-17.5); IMMATURE GRANULOCYTE # (AUTO) 0.04 T/MM3 (0.00-0.03); IMMATURE GRANULOCYTE % (AUTO) 0.5 % (0.0-0.5); LYMPHOCYTES # (AUTO) 1.4 T/MM3 (1-4.8); LYMPHOCYTES % (AUTO) 18.4 % (23-45); MEAN CORPUSCULAR HGB 29.3 UUG (26-34); MEAN CORPUSCULAR HGB CONC(MCHC 33.4 GM/DL (31-37); MEAN CORPUSCULAR VOLUME 87.6 UM3 (80-100); MEAN PLATELET VOLUME 10.7 UM3 (9.4-12.4); MONOCYTES # (AUTO) 0.5 T/MM3 (0-0.8); MONOCYTES % (AUTO) 6.9 % (0-9.0); NEUTROPHILS #(AUTO)-ABSOLUTE 5.2 T/MM3 (1.8-7.7); NEUTROPHILS % (AUTO) 70.4 % (33-66); RED BLOOD COUNT 5.16 M/MM3 (4.50-5.90); WBC - WHITE BLOOD COUNT 7.4 T/MM3 (4.5-11.0)
[2016-08-25 07:53] LABS: INR 1.05 (0.76-1.04); PROTHROMBIN TIME 11.4 SEC (9.31-12.49); PTT 31.3 SEC (24-36)
[2016-08-25 08:00] LABS: ALBUMIN 4.4 G/DL (3.5-5.0); ALBUMIN/GLOBULIN RATIO 1.4 RATIO (1.1-2.2); ALKALINE PHOSPHATASE 63 U/L (38-126); ALT (SGPT) 50 U/L (21-72); ANION GAP 14 MEQ/L (5-15); AST (SGOT) 37 U/L (17-59); BUN/CREATININE RATIO 12 RATIO (6-26); CALCIUM 9.8 MG/DL (8.4-10.2); CHLORIDE 106 MEQ/L (98-107); CO2 - CARBON DIOXIDE 23 MEQ/L (22-30); CREATININE 1.3 MG/DL (0.8-1.5); GLOMERULAR FILTRATION RATE 55; GLUCOSE 113 MG/DL (75-110); POTASSIUM 4.3 MEQ/L (3.6-5); SODIUM 143 MEQ/L (134-144); TOTAL PROTEIN 7.6 G/DL (6.3-8.2)
--- NOTE | 2016-08-25 08:03 | ANESPREOP ---
Anesthesia Record Date and Time DATE: 08/25/16 TIME: 08:01 Pre-Op Diagnosis obstructive BPH Proposed Surgical Procedure Laser TURP NPO since: 2199 Allergies: Coded Allergies: NKDA (Verified Allergy, Unknown, 08/25/16) Ht/Wt/BMI Height: 6 ' 1.00 " Weight: 106.600 kg BMI: 31.0 kg/m2 Vital Signs Date Time Temp Pulse Resp B/P Pulse Ox O2 Delivery O2 Flow Rate FiO2 08/25/16 07:30 98.0 62 15 141/84 95 Room Air Medications Inpatient Medications Current Medications Medications (Trade) Dose Ordered Sig/Cash Start Time Stop Time Status Last Admin Dose Admin Lactated Ringer's (Lactated Ringers) 1,000 ml @ 30 mls/hr Q24H 08/25/16 07:00 08/25/16 07:35 30 MLS/HR Atorvastatin Calcium (Atorvastatin Calcium) 10 Mg Tablet, 0.5 TAB PO DAILY, ( Reported) Last Taken: on 08/24/16 Hydrochlorothiazide (Hydrochlorothiazide) 25 Mg Tablet, 1 TAB PO DAILY, (Reported) Last Taken: on 08/24/16 Losartan Potassium (Losartan Potassium) 50 Mg Tablet, 50 MG PO DAILY, (Reported) Last Taken: on 08/24/16 Saw [place] Fruit (Saw [place]) 450 Mg Capsule, 1 CAP PO DAILY, (Reported) Last Taken: on 08/17/16 Sildenafil Citrate (Sildenafil) 20 Mg Tablet, 1 TAB PO DAILY PRN for PRN ORDERS, (Reported) Tamsulosin HCl (Flomax) 0.4 Mg Capsule, 0.4 MG PO HS, (Reported) Take 1 capsule, by mouth, one time a day at BEDTIME. Last Taken: on 08/23/16 Currently on Beta Alanna: No Medical/Surgical History Anesthesia PMH: Reports: *Hypertension, Arthritis, Hyperlipidemia, Reflux, Denies: Anesthesia Reactions (NO AIRWAY ISSUES), Cancer, Clotting Problems, Glaucoma, Malignant Hyperthermia, Sleep Apnea Smoking Status: Former smoker (quit 15 yr ago) Has pt. smoked today?: No Use Chewing Tobacco?: No Second Hand Exposure: No Substance Use Type: does not use Alcohol Intake: none Past Surgical History Orthopedic Surgeries: Yes - L. KNEE ARTHROSCOPY Abdominal Surgeries: Genitourinary Surgeries: Cardiac Surgeries: Endocrine Surgeries: Reproductive Surgeries: Yes - VASECTOMY Neurological Surgeries: Ear Surgeries: Nose Surgeries: Throat Surgeries: Other Surgeries: Yes - COLONOSCOPIES Anesthesia Adverse Reactions: FOUND none Family Hx of Anesthesia Advers: none Hx of Motion Sickness: No Pertinent Findings Laboratory Tests 08/25/16 07:34 Test 08/25/16 07:34 Activated Partial Thromboplast Time 31.3SEC (24-36) Prothromb Time International Ratio 1.05 (0.76-1.04) EKG Rhythm: Sinus Rhythm Physical Exam Respiratory: Lungs clear Cardiovascular: FOUND Regular rate, rhythm, FOUND No murmur Airway Assessment Mallampati Score: II TMD: 3 Fingerbreadths Neck Extension: Good Teeth: Partial Upper Dentures, Chipped Teeth/Crowns Overall Assessment: No Airway Concerns ASA: 2 Plan Anesthesia Plan: [facility]: Spinal Discussion Discussed risks/options/alternatives of anesthesia and questions answered. Patient consents. Nursing pain assessment noted. Present: Spouse Attestation Statement Prior to the delivery of any anesthetic medication, I examined the patient, developed the plan, obtained the patient's consent and discussed the risk and benefits of the procedure with the patient/guardian. ISIDRO NORRIS I FACULTY NEUROPSYCHOLOGIST Aug 25, 2016 08:03
[2016-08-25] MEDS ORDERED: FENTANYL 100mcg/2ml INJECTION ONE (08:04)
[2016-08-25] MEDS ORDERED: MIDAZOLAM 2mg/2ml INJECTION ONE (08:04)
[2016-08-25] MEDS ORDERED: NORMAL SALINE 1,000 ML IV SCH (10:10)
[2016-08-25] MEDS ORDERED: BELLADONNA-OPIUM 16.2-60mg SUPP RECTALLY PRN (10:15)
[2016-08-25] MEDS ORDERED: MORPHINE SULFATE 4 MG SYRINGE IV PRN (10:15)
[2016-08-25] MEDS ORDERED: ONDANSETRON 4mg/2ml INJECTION IV PRN (10:15)
[2016-08-25] MEDS ORDERED: SCOPOLAMINE 1.5 MG PATCH TD SCH (11:00)
[2016-08-25] MEDS ORDERED: METOCLOPRAMIDE 10mg/2ml INJECTION IV PRN (11:00)
[2016-08-25] MEDS ORDERED: DEXAMETHASONE 4mg/ml - 1ml INJECTION IV PRN (11:00)
--- NOTE | 2016-08-25 12:09 | ANESPO ---
Post-Op Note Date 08/25/16 Time: 12:00 Status Pt Participated in Evaluation: Pt participated in person Vital Signs Date Time Temp Pulse Resp B/P Pulse Ox O2 Delivery O2 Flow Rate FiO2 08/25/16 11:50 50 123/66 96 Room Air 08/25/16 11:20 95.8 16 Respiratory Function: Airway patent Cardiovascular Function: Regular pulse Mental Status: Alert/oriented Pain Level Intensity: 0 Hydration: IV infusing Complications during Recovery None apparent Follow-Up Instructions Instructions Per Surgeon ADRIANNE BOOTHE CRNA Aug 25, 2016 12:09
[2016-08-25] MEDS: DOCUSATE SODIUM 100 MG CAPSULE PO SCH ×2 (15:20→21:19)
--- NOTE | 2016-08-25 16:18 | OPNOTEF ---
DATE OF SURGERY 08/25/2016 SURGEON Jonathan Fan MD PREOPERATIVE DIAGNOSES Obstructive BPH. Bladder stones, less than 1 cm in size. POSTOPERATIVE DIAGNOSES Obstructive BPH. Bladder stones, less than 1 cm in size. OPERATION PERFORMED Cystolitholapaxy. Cyber TM TURP. ANESTHESIA Spinal. INDICATIONS Mr. López is a 65-year-old male with very severe prostatism with a large obstructing trilobar hyperplasia of the prostate and thick trabeculated bladder wall. He also was found to have two stones in the bladder that measure just under 1 cm in size. The patient was brought in to remove the stones and perform Cyber TM laser TURP. NARRATIVE OF PROCEDURE The patient was taken to the cystoscopy suite and under spinal anesthesia he was placed in the dorsal lithotomy position, prepped and draped in usual fashion for cystoscopic procedures. A 23-Fr cystoscope was inserted into the bladder under direct visualization. The meatus barely accepted the 23-Fr cystoscope. The bladder was heavily trabeculated with cellules and saccules and early diverticula. No bladder tumor was found. The bladder outlet was tightly obstructing from medium-size BPH with a significant median lobe. In fact, the median lobe was so high it was very difficult to insert the cystoscope. The bladder was emptied out and two small stones were visualized with a small amount of irrigation in the bladder. These were crushed with a grasping forceps and retrieved. Following that, the cystoscope was removed. The urethra and meatus were then calibrated and dilated to 32-Fr with a Paco sound. Laserscope 26-Fr was inserted into the bladder with a visualizing obturator. Again, the resectoscope was very difficult to be inserted due to the very high median lobe. Using Cyber TM laser fiber, the median lobe was then vaporized by contact laser fiber. This allowed the resectoscope to get in and out of the bladder easier. The ureteral orifices were visualized and protected throughout the vaporization. Vaporization was then extended to the veru from 8 o'clock to 4 o'clock in the posterior lobe. Excellent opening was created. The lateral lobes were vaporized but we were not able to vaporize as much as we would like to due to the coagulation and charring effect. The vaporization was performed from 100 abrams up to 150 abrams. The anterior lobe was also vaporized, especially at the bladder neck. The prostate was not very vascular and did not show much bleeding. After an adequate opening was created the charred tissue in the bladder was irrigated out with an Ellik. At 30 abrams of laser power hemostasis was obtained throughout the prostatic fossa. The Laserscope was then removed and a 24-Fr 3-way Carrasco catheter was inserted into the bladder with the aid of catheter stylet. The 30-cc balloon was inflated and the bladder was irrigated clear by hand. Continuous bladder irrigation was started and patient was taken to the recovery room in stable condition. ARYAN
[2016-08-25] MEDS ORDERED: HYDROCODONE/APAP 5 mg/325 mg TABLET PO PRN (18:15)
[2016-08-25] MEDS: SULFAMETHOXAZOLE/TMP 800mg/160mg TABLET PO SCH (21:19)
[2016-08-26] MEDS ORDERED: HYDROCHLOROTHIAZIDE 25 MG TABLET PO SCH (08:00)
[2016-08-26 08:01] VITALS: BP 132/72; PULSE 59; RESP 18; TEMP 96.4
[2016-08-26 08:02] VITALS: PULSE 59; RESP 18
[2016-08-26] MEDS: SULFAMETHOXAZOLE/TMP 800mg/160mg TABLET PO SCH (08:54)
[2016-08-26] MEDS: DOCUSATE SODIUM 100 MG CAPSULE PO SCH (08:55)
[2016-08-26] MEDS ORDERED: LOSARTAN 50 MG TABLET PO SCH (09:00)
[2016-08-26] MEDS ORDERED: ATORVASTATIN 10 MG TABLET PO SCH (09:00)
[2016-08-26] MEDS ORDERED: SAW PALMETTO PO SCH (09:00)
--- NOTE | 2016-08-26 12:20 | PNF ---
DATE 08/26/2016 Room 134 The patient is postop day #1 following Cyber TM TURP . The patient is afebrile and vital signs are stable. The patient is alert and oriented today and voices no complaints. There is no significant pain and urine is clear with essentially no irrigation going. Abdomen is soft and nontender. We will remove the Carrasco catheter and give him voiding trial. If he is able to urinate satisfactorily, he will be discharged later today without a catheter. If is unable to urinate satisfactorily, then he will be going home with an indwelling Carrasco catheter. ARYAN
[2016-08-26] MEDS ORDERED: DOCU-168 PO (13:09)
[2016-08-26] MEDS ORDERED: SULF1TAB3 PO (13:09)
[2016-08-28] MEDS ORDERED: SCOPOLAMINE PATCH REMOVAL TD SCH (11:00)
== END 2016-08-26 13:26 | disposition home or self-care (01) ==
LOC: SRG 07:05 → SCU 07:05
PROVIDERS: ATTEND Specialist
DX: N40.1 Benign prostatic hyperplasia with lower urinary tract symptoms (principal); N13.8 Other obstructive and reflux uropathy; N21.0 Calculus in bladder; I10 Essential (primary) hypertension; E78.5 Hyperlipidemia, unspecified; N52.9 Male erectile dysfunction, unspecified; Z79.899 Other long term (current) drug therapy; Z87.891 Personal history of nicotine dependence
CPT/HCPCS: 80053; 85025; 85610; 85730